=== PATIENT | female | born 1940 | race Caucasian/White ===

== ENCOUNTER 2018-06-24 11:58 | Emergency (ER) | payer MEDICARE, OTHER, MEDICAID ==
--- NOTE | 2018-06-24 12:10 | EDM.PDOC ---
ED HPI GENERAL MEDICAL PROBLEM - General Chief Complaint: General Stated Complaint: NAUSEA,WEAK,CHILLS Time Seen by Provider: 06/24/18 12:04 Source of Information: Reports: Patient, RN Notes Reviewed History Limitations: Reports: No Limitations - History of Present Illness INITIAL COMMENTS - FREE TEXT/NARRATIVE: The patient is a 77-year-old female who presents to the ED for the evaluation of nausea and just not feeling well. She states that she has not felt well since yesterday, she feels weak and nauseated and has not had much of an appetite for the past 2 days. She states that around one week ago she did have cold-like symptoms and was seen by her primary care doc, Dr. Mcgrath, and he did prescribe her a Z-Breezy but told her her cold symptoms are most likely viral. She states that she was started on a new water pill around 1 month ago and wonders if she might not be a little bit dehydrated from this. States that she can drink water okay but she just has no interest or appetite for food. She did eat cereal this morning knowing that she needs to eat some food and her stomach got sick shortly afterwards. She states that she does have nausea but no vomiting or diarrhea, no chest pain, no shortness of breath, no fever, however she feels as if she has the chills. She notes that she has some mild discomfort over her stomach in her abdomen but otherwise she does not have pain anywhere. She also denies any urinary symptoms such as frequency or dysuria. She states that she did have a normal bowel movement this morning. - Related Data Allergies Allergy/AdvReac Type Severity Reaction Status Date / Time aspirin Allergy Vomiting Verified 08/22/13 15:38 ibuprofen Allergy Vomiting Verified 08/22/13 15:38 Home Meds: Home Meds Diltiazem [Cardizem CD] 180 mg PO DAILY 08/22/13 [History] Metoprolol Succinate [Toprol XL] 125 mg PO DAILY 08/22/13 [History] Warfarin [Coumadin] 3 mg PO ASDIRECTED 08/22/13 [History] Warfarin [Coumadin] 2 mg PO MOFR 12/08/14 [History] Ondansetron [Zofran ODT] 4 mg PO Q6H PRN #28 tab.dis 06/24/18 [Rx] Past Medical History - Past Surgical History Other Oncologic Surgeries/Procedures: Reconstrudctive surgery after mastectomy ED ROS GENERAL - Review of Systems Review Of Systems: See Below Constitutional: Reports: Chills, Weakness, Fatigue, Decreased Appetite. Denies : Fever HEENT: Reports: No Symptoms Respiratory: Reports: No Symptoms Cardiovascular: Reports: No Symptoms Endocrine: Reports: No Symptoms GI/Abdominal: Reports: Nausea. Denies: Abdominal Pain, Black Stool, Constipation, Diarrhea, Vomiting : Denies: Dysuria, Frequency Musculoskeletal: Reports: No Symptoms Skin: Reports: No Symptoms Neurological: Reports: No Symptoms Psychiatric: Reports: Anxiety (History of, she states that she worries a lot.). Denies: Depression Hematologic/Lymphatic: Reports: No Symptoms Immunologic: Reports: No Symptoms ED EXAM, GENERAL - Physical Exam Exam: See Below Exam Limited By: No Limitations General Appearance: Alert, WD/WN, No Apparent Distress Eye Exam: Bilateral Eye: EOMI, Normal Inspection, PERRL Ears: Normal External Exam Nose: Normal Inspection Throat/Mouth: Normal Inspection, Normal Lips, Normal Oropharynx (Oral mucosa is mildly dry.), Normal Voice, No Airway Compromise. No: Normal Teeth Head: Atraumatic, Normocephalic Neck: Normal Inspection Respiratory/Chest: No Respiratory Distress, Lungs Clear, Normal Breath Sounds, No Accessory Muscle Use, Chest Non-Tender Cardiovascular: Normal Peripheral Pulses, Regular Rate, Rhythm, No Murmur GI/Abdominal: Normal Bowel Sounds, Soft, Non-Tender, No Distention Extremities: Normal Inspection, Normal Capillary Refill Neurological: Alert, Oriented, Normal Cognition, Normal Gait, No Motor/Sensory Deficits Psychiatric: Normal Affect, Normal Mood Skin Exam: Warm, Dry, Intact, Normal Color, No Rash Course - Vital Signs Last Recorded V/S: Last Vital Signs Temp 98.1 F 06/24/18 12:14 Pulse 89 06/24/18 12:14 Resp 20 06/24/18 12:14 BP 146/76 H 06/24/18 12:14 Pulse Ox 96 06/24/18 12:14 - Orders/Labs/Meds Orders: Active Orders 24 hr Category Date Time Status Peripheral IV Care [RC] . DIRECTED Care 06/24/18 12:23 Ordered Sodium Chloride 0.9% [Normal Saline] 1,000 ml Med 06/24/18 12:30 Ordered IV ASDIRECTED Sodium Chloride 0.9% [Saline Flush] Med 06/24/18 12:23 Ordered 10 ml FLUSH ASDIRECTED PRN Peripheral IV Insertion Adult [OM.PC] Routine Oth 06/24/18 12:23 Ordered Medication Orders Sodium Chloride (Normal Saline) 1,000 mls @ 500 mls/hr IV ASDIRECTED ONIEL Last Admin: 06/24/18 12:44 Dose: 500 mls/hr Sodium Chloride (Saline Flush) 10 ml FLUSH ASDIRECTED PRN PRN Reason: Keep Vein Open Last Admin: 06/24/18 12:44 Dose: 10 ml Labs: Laboratory Tests 06/24/18 06/24/18 06/24/18 Range/Units 13:23 13:23 13:33 WBC 4.15 (3.98-10.04) K/mm3 RBC 4.13 (3.98-5.22) M/mm3 Hgb 12.7 (11.2-15.7) gm/L Hct 37.6 (34.1-44.9) % MCV 91.0 (79.4-94.8) fl MCH 30.8 (25.6-32.2) pg MCHC 33.8 (32.2-35.5) g/dl RDW Std Deviation 41.9 (36.4-46.3) fL Plt Count 36 L (182-369) K/mm3 MPV 10.4 (9.4-12.3) fl Neutrophils % (Manual) 69 H (40-60) % Band Neutrophils % 0 (0-10) % Lymphocytes % (Manual) 19 L (20-40) % Atypical Lymphs % 0 % Monocytes % (Manual) 10 (2-10) % Eosinophils % (Manual) 2 (0.7-5.8) % Basophils % (Manual) 0 L (0.1-1.2) Platelet Estimate Marked dec RBC Morph Comment Normal Sodium 134 L (136-145) mEq/L Potassium 3.8 (3.5-5.1) mEq/L Chloride 98 (98-107) mEq/L Carbon Dioxide 25 (21-32) mEq/L Anion Gap 14.8 (5-15) BUN 20 H (7-18) mg/dL Creatinine 1.0 (0.55-1.02) mg/dL Est Cr Clr Drug Dosing 43.07 mL/min Estimated GFR (MDRD) 54 (>60) mL/min BUN/Creatinine Ratio 20.0 H (14-18) Glucose 107 (83-115) mg/dL Calcium 9.1 (8.5-10.1) mg/dL Total Bilirubin 0.5 (0.2-1.0) mg/dL AST 26 (15-37) U/L ALT 30 (14-59) U/L Alkaline Phosphatase 77 (46-116) U/L Total Protein 7.1 (6.4-8.2) g/dl Albumin 3.1 L (3.4-5.0) g/dl Globulin 4.0 gm/dL Albumin/Globulin Ratio 0.8 L (1-2) Urine Color Yellow (Yellow) Urine Appearance Clear (Clear) Urine pH 6.5 (5.0-8.0) Ur Specific [place] 1.015 (1.005-1.030) Urine Protein Negative (Negative) Urine Glucose (UA) Negative (Negative) Urine Ketones Negative (Negative) Urine Occult Blood Trace-lysed H (Negative) Urine Nitrite Negative (Negative) Urine Bilirubin Negative (Negative) Urine Urobilinogen 0.2 (0.2-1.0) Ur Leukocyte Esterase Negative (Negative) Urine RBC 0-5 (0-5) /hpf Urine WBC 0-5 (0-5) /hpf Ur Epithelial Cells 0-5 (0-5) /hpf Urine Bacteria Rare (FEW) /hpf Urine Mucus Not seen (FEW) /hpf Meds: Medications Generic Name Dose Route Start Last Admin Trade Name Freq PRN Reason Stop Dose Admin Sodium Chloride 1,000 mls @ 500 mls/hr 06/24/18 12:30 06/24/18 12:44 Normal Saline IV 500 mls/hr ASDIRECTED ONIEL Administration Sodium Chloride 10 ml 06/24/18 12:23 06/24/18 12:44 Saline Flush FLUSH 10 ml ASDIRECTED PRN Administration Keep Vein Open Discontinued Medications Generic Name Dose Route Start Last Admin Trade Name Freq PRN Reason Stop Dose Admin Ondansetron HCl 4 mg 06/24/18 12:23 06/24/18 12:45 Zofran IVPUSH 06/24/18 12:24 4 mg ONETIME ONE Administration - Re-Assessments/Exams Free Text/Narrative Re-Assessment/Exam: 06/24/18 12:35 Patient presents to the ED for the evaluation of nausea and general feelings of being unwell. Have ordered 4 mg IV Zofran, IV fluid bolus, CBC, CMP, and a UA and further evaluation of her symptoms. 06/24/18 14:38 Patient's labs have returned and are essentially within normal limits however her BUN is elevated at 20 which suggests that she was mildly dehydrated. We'll let the IV fluids run in and make her aware of the results. Departure - Departure Time of Disposition: 15:06 Disposition: Home, Self-Care 01 Condition: Fair Clinical Impression: Dehydration, Nausea - Discharge Information *PRESCRIPTION DRUG MONITORING PROGRAM REVIEWED*: No *COPY OF PRESCRIPTION DRUG MONITORING REPORT IN PATIENT JP: No Instructions: Nausea, Adult, [id number], Dehydration, Elderly, [id number] Referrals: Jorge Mcgrath MD [Primary Care Provider] - Forms: ED Department Discharge Additional Instructions: You have been evaluated in the ED today for your general feelings of nausea and weakness. You were given IV fluids in regards to your weakness feelings. Your labs did demonstrate that you are mildly dehydrated and the fluid should help correct this. You were given a medicine called Zofran for nausea. You will be provided with a prescription for Zofran as needed for home use, please dissolve 1 tab under your tongue every 8 hours as needed for nausea. [facility] you may pick this up Monday morning. Please increase you fluid intake as able and stick to a soft/bland diet for the next 24-48 hours to see if this doesn't help your feelings of nausea. Recommend close follow-up with your primary care provider by the middle or end of this week if your symptoms are not much better. Please return to the ED if your symptoms change or worsen. - My Orders Last 24 Hours: My Active Orders 06/24/18 12:23 Peripheral IV Care [RC] . DIRECTED Sodium Chloride 0.9% [Saline Flush] 10 ml FLUSH ASDIRECTED PRN Peripheral IV Insertion Adult [OM.PC] Routine 06/24/18 12:30 Sodium Chloride 0.9% [Normal Saline] 1,000 ml IV ASDIRECTED - Assessment/Plan Last 24 Hours: My Active Orders 06/24/18 12:23 Peripheral IV Care [RC] . DIRECTED Sodium Chloride 0.9% [Saline Flush] 10 ml FLUSH ASDIRECTED PRN Peripheral IV Insertion Adult [OM.PC] Routine 06/24/18 12:30 Sodium Chloride 0.9% [Normal Saline] 1,000 ml IV ASDIRECTED
[2018-06-24] MEDS ORDERED: Ondansetron 4 MG/2 ML SDV IVPUSH ONE (12:23)
[2018-06-24] MEDS ORDERED: Sodium Chloride 0.9% 10 ML Syringe FLUSH PRN (12:23)
[2018-06-24] MEDS ORDERED: Sodium Chloride 0.9% 1,000 ML IV SCH (12:30)
== END 2018-06-24 15:29 | disposition home or self-care (01) ==
LOC: JD.ED 11:58
DX: E86.0 Dehydration (principal); R11.0 Nausea; Z88.6 Allergy status to analgesic agent; Z79.01 Long term (current) use of anticoagulants; Z79.899 Other long term (current) drug therapy
CPT/HCPCS: 36415; 80053; 81001; 85007; 85027; 96361; 96374; 99284; J2405; J7040

== ENCOUNTER 2019-04-25 05:27 | Emergency (ER) | payer MEDICARE, OTHER ==
--- NOTE | 2019-04-25 06:06 | EDM.PDOC ---
ED HPI GENERAL MEDICAL PROBLEM - General Chief Complaint: Head Injury Stated Complaint: WRIST AND HEAD INJURY Time Seen by Provider: 04/25/19 05:37 Source of Information: Reports: Patient History Limitations: Reports: No Limitations - History of Present Illness INITIAL COMMENTS - FREE TEXT/NARRATIVE: Ms. Fortune is a very pleasant 78-year-old woman with a past medical history significant for peripheral neuropathy secondary to chemotherapy, and paroxysmal atrial fibrillation, on Coumadin, who states that she got up around 04:00 this morning, and decided to take the blankets off for bed to do some laundry. She states that because of her peripheral neuropathy, she did not realize that she had gotten her feet tangled up in the bed sheets, and she fell backwards, striking her right wrist on a wall, followed by the back of her head, before falling to the ground. She states that she injured her right wrist when she struck the wall, but that her head does not hurt, and she did not hurt herself further when she fell. Her only complaint is of her right wrist. She denies having a headache. The patient came to the ED by taxi. The patient's PCP is Dr. Nima Guidry. She does not recall the name of her Customer Marketing Assistant, who is out of [facility]. She states that she did receive an influenza vaccine this season. Right Wrist Pain Score (Numeric/FACES): 8 - Related Data Allergies Allergy/AdvReac Type Severity Reaction Status Date / Time aspirin Allergy Vomiting Verified 04/25/19 05:40 ibuprofen Allergy Vomiting Verified 04/25/19 05:40 Home Meds: Home Meds Diltiazem [Cardizem CD] 180 mg PO DAILY 08/22/13 [History] Metoprolol Succinate [Toprol XL] 150 mg PO DAILY 08/22/13 [History] Warfarin [Coumadin] 3 mg PO ASDIRECTED 08/22/13 [History] Warfarin [Coumadin] 4 mg PO ASDIRECTED 12/08/14 [History] Ondansetron [Zofran ODT] 4 mg PO Q6H PRN #28 tab.dis 06/24/18 [Rx] Doxazosin Mesylate [Cardura] 1 mg PO DAILY 04/25/19 [History] Past Medical History HEENT History: Reports: Allergic Rhinitis, Glaucoma Cardiovascular History: Reports: Afib (paroxysmal), Hypertension Genitourinary History: Reports: Urinary Incontinence (stress incontinence) Musculoskeletal History: Reports: Arthritis, Fracture (Right femur, right patella, right ankle) Psychiatric History: Reports: Anxiety (untreated), Depression (untreated) Oncologic (Cancer) History: Reports: Breast (right, s/p CTx + mastectomy) - Past Surgical History HEENT Surgical History: Reports: Cataract Surgery (bilateral), Oral Surgery ( Dental extractions), Tonsillectomy GI Surgical History: Reports: Appendectomy, Cholecystectomy (1975), Other (See Below) (Hemorrhoidectomy) Female Surgical History: Reports: Hysterectomy (partial) Musculoskeletal Surgical History: Reports: ORIF (right patella), Other (See Below) (Right femur rambo) Oncologic Surgical History: Reports: Mastectomy (right) Dermatological Surgical History: Reports: Plastic Surgical Reconstruction/ Repair (right breast) Social & Family History - Tobacco Use Smoking Status *Q: Never Smoker - Caffeine Use Caffeine Use: Reports: Soda - Alcohol Use Alcohol Use History: No - Recreational Drug Use Recreational Drug Use: No - Living Situation & Occupation Living situation: Reports: Single, Alone Occupation: Retired ED ROS GENERAL - Review of Systems Review Of Systems: Comprehensive ROS is negative, except as noted in HPI. ED EXAM, GENERAL - Physical Exam Exam: See Below Exam Limited By: No Limitations General Appearance: Alert, WD/WN, No Apparent Distress Eye Exam: Bilateral Eye: EOMI, Normal Inspection, Other (s/p cataract surgery) Ears: Normal External Exam, Normal Canal, Hearing Grossly Normal, Normal TMs Nose: Normal Inspection, Normal Mucosa, No Blood Throat/Mouth: Normal Inspection, Normal Lips, Normal Gums, Normal Oropharynx, Normal Voice, No Airway Compromise Head: Atraumatic (No visible or palpable abnormality to the posterior scalp. Nontender.), Normocephalic Neck: Normal Inspection, Supple, Non-Tender, Full Range of Motion Respiratory/Chest: No Respiratory Distress, Lungs Clear, Normal Breath Sounds, No Accessory Muscle Use Cardiovascular: Normal Peripheral Pulses, Regular Rate, Rhythm, No Edema, No Gallop, No JVD, No Murmur, No Rub Peripheral Pulses: 4+: Radial (L), Radial (R) GI/Abdominal: Normal Bowel Sounds, Soft, Non-Tender, No Organomegaly, No Distention, No Abnormal Bruit, No Mass (Female) Exam: Deferred Rectal (Female) Exam: Deferred Back Exam: Normal Inspection, Full Range of Motion, NT Extremities: Normal Capillary Refill, Other (There is some swelling over the distal right radius, and the area is tender to palpation. No tenderness over the distal ulna. No pain to the wrist with compression of the mid radius and ulna area the patient reports pain to range of motion of the right wrist. Neurovascular status of the right upper extremity is intact.) Neurological: Alert, Oriented, CN II-XII Intact, Normal Cognition, No Motor/ Sensory Deficits Psychiatric: Normal Affect Skin Exam: Warm, Dry, Intact, Normal Color, No Rash ED GENERAL MEDICAL PROCEDURES - Splinting Right Upper Extremity Splint Site: Right wrist Pre-procedure NV status: Normal Post-procedure NV status: Normal Splint Material: Fiberglass Splint Design: Gutter (ulnar) Applied & Form Fitted By: Provider Provider Post-Splint Application NV Check: NV Status Normal, Good Position Complications: No Course - Vital Signs Last Recorded V/S: Last Vital Signs Temp 35.9 C 04/25/19 05:35 Pulse 86 04/25/19 05:35 Resp 18 04/25/19 05:35 BP 179/74 H 04/25/19 05:35 Pulse Ox 96 04/25/19 05:35 - Orders/Labs/Meds Orders: Active Orders 24 hr Category Date Time Status DME for Discharge [COMM] Stat Oth 04/25/19 07:40 Ordered - Re-Assessments/Exams Free Text/Narrative Re-Assessment/Exam: 04/25/19 06:02 There is no visible or palpable injury to the patient's posterior skull, and she has no pain on palpation. Her neurologic examination is completely normal. A CT scan of her head is not indicated. I am more concerned, however, about her right wrist. She has visible swelling over the distal radius, pain to that area , and it is tender. A distal radius fracture is possible. I have ordered x-rays to evaluate. The patient declined an offer for pain medication. 04/25/19 06:31 4-view radiographs of the right wrist appear to demonstrate an impacted and minimally dorso-ulnar displaced distal radius fracture. No other fracture or dislocation identified. Formal read per the Radiologist pending. I will place the patient into an ulnar gutter splint and refer her to Ortho. 04/25/19 06:49 I placed the patient's right upper extremity into an ulnar gutter splint with the elbow at 90 and the hand in a thumbs-up position. The patient tolerated the procedure well. The patient does not think that she will be able to take care of herself at home with the splint on, and she may be right. She thinks that she will need to go into a [facility], which seems reasonable. I will have high school social studies teacher talk with the patient when they get here later this morning. 04/25/19 08:41 services account manager has been working with the patient, but are unable to arrange for either home health care or mcc placement without the patient having to pay for it, which she is unable to do. Unfortunately, we will have to discharge the patient home. We are recommending that she follow-up with her PCP. Departure - Departure Time of Disposition: 08:45 Disposition: Home, Self-Care 01 Condition: Good Clinical Impression: Fracture of right distal radius - Discharge Information *PRESCRIPTION DRUG MONITORING PROGRAM REVIEWED*: Not Applicable *COPY OF PRESCRIPTION DRUG MONITORING REPORT IN PATIENT JP: Not Applicable Referrals: Nima Guidry MD [Primary Care Provider] - Garcia Santamaria MD [Physician] - Forms: ED Department Discharge Additional Instructions: You were seen in the emergency room after tripping and falling in your bedroom, striking your right wrist on a wall. Workup in the ER included x-rays of your right wrist, which found that you have a distal radius fracture. Your right arm has been placed into a splint. The splint cannot get wet. We recommend that you ice and elevate your right wrist as much as possible over the next 2 days, to help minimize swelling. You may place an ice pack directly over the splint. Take [id number] Tylenol as needed for discomfort. Follow-up with the Orthopedic Surgeon Dr. Garcia Santamaria in approximately one week. Follow-up with your PCP, Dr. Nima Guidry, at the next available appointment. If any other problems, please do not hesitate to return to the ER. Sepsis Event Note - Evaluation Sepsis Screening Result: No Definite Risk - Focused Exam Vital Signs: Vital Signs Temp Pulse Resp BP Pulse Ox 04/25/19 05:35 35.9 C 86 18 179/74 H 96 Date Exam was Performed: 04/25/19 Time Exam was Performed: 08:40 - My Orders Last 24 Hours: My Active Orders 04/25/19 07:40 DME for Discharge [COMM] Stat - Assessment/Plan Last 24 Hours: My Active Orders 04/25/19 07:40 DME for Discharge [COMM] Stat
--- NOTE | 2019-04-25 07:34 | CR ---
Right wrist: Four views of the right wrist were obtained. Comparison: No previous right wrist exam. Fracture is identified within the distal radius through the metaphysis. Minimal posterior impaction is seen. Bony structures are osteopenic. No additional fracture or other bony abnormality is appreciated. Impression: 1. Slightly impacted distal right radial fracture. 2. Osteopenia. Diagnostic code #3 This report was dictated in [place] Standard Time
== END 2019-04-25 09:20 | disposition home or self-care (01) ==
LOC: JD.ED 05:27
DX: S52.501A Unspecified fracture of the lower end of right radius, initial encounter for closed fracture (principal); I48.91 Unspecified atrial fibrillation; I10 Essential (primary) hypertension; Z88.6 Allergy status to analgesic agent; Z79.01 Long term (current) use of anticoagulants; Z79.899 Other long term (current) drug therapy; W01.198A Fall on same level from slipping, tripping and stumbling with subsequent striking against other object, initial encounter
CPT/HCPCS: 29125; 73110-26-RT; 73110-RT; 99283; 99283-25

== ENCOUNTER 2020-01-22 14:39 | Inpatient (IN) | payer MEDICARE, OTHER, MEDICAID ==
[2020-01-22] MEDS ORDERED: Sodium Chloride 0.9% 10 ML Syringe FLUSH PRN (15:04)
--- NOTE | 2020-01-22 15:52 | EDM.PDOC ---
ED HPI GENERAL MEDICAL PROBLEM - General Chief Complaint: Gastrointestinal Problem Stated Complaint: [facility] Time Seen by Provider: 01/22/20 14:47 Source of Information: Reports: Patient History Limitations: Reports: No Limitations - History of Present Illness INITIAL COMMENTS - FREE TEXT/NARRATIVE: Patient is a 79-year-old female presenting to the emergency department with complaints of weakness, fatigue, and loss of appetite. She was tested for COVID on Monday and got her results yesterday. Patient was just discharged from [facility] in [place] after having a right total hip replacement due to sustaining a fall on January 05. She spent 10 days in the hospital. States she stayed with her daughter until Monday and has been home alone since that time. Patient feels that she had COVID while she was in the hospital as she had loss of appetite and taste, weakness, and a mild cough while she was there as well. She was tested for COVID prior to her surgery and at that time it was negative. She still was not feeling well after discharge, therefore she was tested again 5 days ago. She does not feel that she can care for herself at home due to her weakness and loss of appetite. Both of her daughters, one in [place] and one in [place] have COVID and she states that they are "in rough shape "; therefore, they would be unable to assist with her cares. She denies any recent falls since being home, however states that she feels like she would have fallen today which is why she called the ambulance. She was unable to eat lunch due to no appetite. Denies any vomiting, shortness of breath, chest pain, fever, or chills. Treatments OPERATIONS SUPPORT MANAGER: Reports: Acetaminophen Other Treatments OPERATIONS SUPPORT MANAGER: t-2 Right Hip Pain Score (Numeric/FACES): 8 - Related Data Allergies Allergy/AdvReac Type Severity Reaction Status Date / Time aspirin Allergy Vomiting Verified 01/22/20 17:31 ibuprofen Allergy Vomiting Verified 01/22/20 17:31 Home Meds: Home Meds Diltiazem [Cardizem CD] 180 mg PO DAILY 08/22/13 [History] Metoprolol Succinate [Toprol XL] 125 mg PO DAILY 08/22/13 [History] Warfarin [Coumadin] 3 mg PO ASDIRECTED 08/22/13 [History] Doxazosin Mesylate [Cardura] 1 mg PO DAILY 04/25/19 [History] Irbesartan/Hydrochlorothiazide [Avalide 150-12.5 mg Tablet] 150 mg PO DAILY 01/22/20 [History] Latanoprost 1 drop EYEBOTH BEDTIME 01/22/20 [History] Pediatric Multivit No.50/DHA [Flintstones Gummies Chew Tab] 1 tab PO DAILY 01/22/20 [History] timoloL maleate [Timoptic 0.5% Ophth Soln] 1 drop EYEBOTH DAILY 01/22/20 [History] Past Medical History HEENT History: Reports: Allergic Rhinitis, Glaucoma Cardiovascular History: Reports: Afib, Hypertension Respiratory History: Reports: Other (See Below) Other Respiratory History: seasonal allergies Gastrointestinal History: Reports: Other (See Below) Other Gastrointestinal History: n/v Genitourinary History: Reports: Urinary Incontinence MICROELECTRONICS ENGINEER History: Reports: Other (See Below) Other MICROELECTRONICS ENGINEER History: 3 kids Musculoskeletal History: Reports: Arthritis, Fracture Other Musculoskeletal History: frx right knee cap; femur bone with screw Neurological History: Reports: None Psychiatric History: Reports: Anxiety, Depression Endocrine/Metabolic History: Reports: None Hematologic History: Reports: None Immunologic History: Reports: None Oncologic (Cancer) History: Reports: Breast Dermatologic History: Reports: None - Infectious Disease History Infectious Disease History: Reports: Chicken Pox, Measles, Mumps, Rubella, Shingles - Past Surgical History Head Surgeries/Procedures: Reports: None HEENT Surgical History: Reports: Cataract Surgery, Oral Surgery, Tonsillectomy GI Surgical History: Reports: Appendectomy, Cholecystectomy, Other (See Below) Female Surgical History: Reports: Hysterectomy Musculoskeletal Surgical History: Reports: ORIF, Other (See Below) Oncologic Surgical History: Reports: Mastectomy Dermatological Surgical History: Reports: Plastic Surgical Reconstruction/Repair Social & Family History - Family History Family Medical History: Noncontributory Cardiac: Reports: VT Neurological: Reports: CVA - Tobacco Use Smoking Status *Q: Never Smoker - Caffeine Use Caffeine Use: Reports: Soda - Recreational Drug Use Recreational Drug Use: No - Living Situation & Occupation Living situation: Reports: Single, Alone Occupation: Retired ED ROS GENERAL - Review of Systems Review Of Systems: See Below Constitutional: Reports: Weakness, Fatigue, Decreased Appetite. Denies: Fever, Chills HEENT: Reports: No Symptoms Respiratory: Reports: Cough. Denies: Shortness of Breath, Wheezing, Pleuritic Chest Pain Cardiovascular: Reports: No Symptoms. Denies: Chest Pain, Dyspnea on Exertion, Lightheadedness, Syncope Endocrine: Reports: No Symptoms GI/Abdominal: Reports: Decreased Appetite, Nausea. Denies: Abdominal Pain, Vomiting : Reports: No Symptoms Musculoskeletal: Reports: Other (right hip pain) Skin: Reports: No Symptoms Neurological: Reports: No Symptoms. Denies: Dizziness, Headache Psychiatric: Reports: No Symptoms Hematologic/Lymphatic: Reports: No Symptoms Immunologic: Reports: No Symptoms ED EXAM, GI/ABD - Physical Exam Exam: See Below General Appearance: Alert, WD/WN, No Apparent Distress Respiratory/Chest: No Respiratory Distress, Lungs Clear, Normal Breath Sounds, No Accessory Muscle Use, Chest Non-Tender Cardiovascular: Normal Peripheral Pulses, Regular Rate, Rhythm, No Edema, No Gallop, No JVD, No Murmur, No Rub GI/Abdominal Exam: Normal Bowel Sounds, Soft, Non-Tender, No Organomegaly, No Distention, No Abnormal Bruit, No Mass, Pelvis Stable Extremities: Normal Inspection, Normal Range of Motion, Non-Tender, Normal C apillary Refill, No Pedal Edema Neurological: Alert, Oriented, CN II-XII Intact, Normal Cognition, Normal Gait, Normal Reflexes, No Motor/Sensory Deficits Psychiatric: Normal Affect, Normal Mood Skin Exam: Wound/Incision (mostly healed to right hip. well approximated with no redness or warmth.) EKG INTERPRETATION EKG Date: 01/22/20 Time: 15:25 Rhythm: A-Fib Rate (Beats/Min): 70 [place]: Normal P-Wave: Absent QRS: Normal ST-T: Normal QT: Prolonged (Mildly) EKG Interpretation Comments: A. 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 Jennifer TAVERAS Course - Vital Signs Last Recorded V/S: Last Vital Signs Temp 97.3 F 01/22/20 17:22 Pulse 54 L 01/22/20 17:22 Resp 18 01/22/20 17:22 BP 148/83 H 01/22/20 17:22 Pulse Ox 96 10/07/20 17:22 - Orders/Labs/Meds Orders: Active Orders 24 hr Category Date Time Status Chest 1V Frontal [CR] Stat Exams 01/22/20 15:05 Taken Sodium Chloride 0.9% [Saline Flush] Med 01/22/20 15:04 Active 10 ml FLUSH ASDIRECTED PRN Peripheral IV Insertion Adult [OM.PC] Stat Oth 01/22/20 15:04 Ordered Medication Orders Acetaminophen (Tylenol) 650 mg PO Q4H PRN PRN Reason: Pain (Mild 1-3)/fever Diltiazem HCl (Cardizem Cd) 180 mg PO DAILY [facility] Doxazosin Mesylate (Cardura) 1 mg PO DAILY ONI[facility] Hydrochlorothiazide (Hydrochlorothiazide) 12.5 mg PO DAILY [facility] Latanoprost (Xalatan 0.005% Ophth Soln) 0 ml EYEBOTH BEDTIME ONIEL Last Admin: 01/22/20 20:48 Dose: 1 drop Documented by: PARTH Losartan Potassium (Cozaar) 50 mg PO DAILY [facility] Metoprolol Succinate (Toprol Xl) 125 mg PO DAILY [facility] Non-Formulary Medication (Warfarin) 3 mg PO ASDIRECTED ONIEL Ondansetron HCl (Zofran) 4 mg IV Q4H PRN PRN Reason: Nausea/Vomiting Sodium Chloride (Saline Flush) 10 ml FLUSH ASDIRECTED PRN PRN Reason: Keep Vein Open Last Admin: 01/22/20 15:13 Dose: 10 ml Documented by: KEN Timolol Maleate (Timoptic 0.5% Ophth Soln) 0 ml EYEBOTH DAILY [facility] Labs: Laboratory Tests 01/22/20 01/22/20 01/22/20 Range/Units 15:29 15:29 15:29 WBC 4.47 (3.98-10.04) K/mm3 RBC 3.48 L (3.98-5.22) M/mm3 Hgb 10.5 L D (11.2-15.7) gm/dl Hct 32.0 L (34.1-44.9) % MCV 92.0 (79.4-94.8) fl MCH 30.2 (25.6-32.2) pg MCHC 32.8 (32.2-35.5) g/dl RDW Std Deviation 45.6 (36.4-46.3) fL Plt Count 321 D (182-369) K/mm3 MPV 9.7 (9.4-12.3) fl Neut % (Auto) 58.0 (34.0-71.1) % Lymph % (Auto) 21.7 (19.3-51.7) % [place] % (Auto) 17.9 H (4.7-12.5) % Eos % (Auto) 2.0 (0.7-5.8) Baso % (Auto) 0.2 (0.1-1.2) % Neut # (Auto) 2.59 (1.56-6.13) K/mm3 Lymph # (Auto) 0.97 L (1.18-3.74) K/mm3 [place] # (Auto) 0.80 H (0.24-0.36) K/mm3 Eos # (Auto) 0.09 (0.04-0.36) K/mm3 Baso # (Auto) 0.01 (0.01-0.08) K/mm3 Manual Slide Review Normal smear PT (9.7-11.7) SECONDS INR APTT (22-31) SECONDS D-Dimer, Quantitative 1.29 H (0.19-0.50) mg/L Sodium 132 L (136-145) mEq/L Potassium 3.6 (3.5-5.1) mEq/L Chloride 97 L (98-107) mEq/L Carbon Dioxide 27 (21-32) mEq/L Anion Gap 11.6 (5-15) BUN 19 H (7-18) mg/dL Creatinine 0.8 (0.55-1.02) mg/dL Est Cr Clr Drug Dosing 53.20 mL/min Estimated GFR (MDRD) > 60 (>60) mL/min BUN/Creatinine Ratio 23.8 H (14-18) Glucose 112 (83-115) mg/dL Lactic Acid (0.4-2.0) mmol/L Calcium 8.5 (8.5-10.1) mg/dL Magnesium 1.5 L (1.8-2.4) mg/dl Total Bilirubin 0.5 (0.2-1.0) mg/dL AST 16 (15-37) U/L ALT 21 (14-59) U/L Alkaline Phosphatase 116 (46-116) U/L Troponin I 0.019 (0.00-0.056) ng/mL C-Reactive Protein 2.0 H* (<1.0) mg/dL Total Protein 6.2 L (6.4-8.2) g/dl Albumin 2.7 L (3.4-5.0) g/dl Globulin 3.5 gm/dL Albumin/Globulin Ratio 0.8 L (1-2) Urine Color (Yellow) Urine Appearance (Clear) Urine pH (5.0-8.0) Ur Specific [place] (1.005-1.030) Urine Protein (Negative) Urine Glucose (UA) (Negative) Urine Ketones (Negative) Urine Occult Blood (Negative) Urine Nitrite (Negative) Urine Bilirubin (Negative) Urine Urobilinogen (0.2-1.0) Ur Leukocyte Esterase (Negative) Urine RBC (0-5) /hpf Urine WBC (0-5) /hpf Ur Squamous Epith Cells (0-5) /hpf Urine Bacteria (FEW) /hpf Urine Mucus (FEW) /hpf 01/22/20 01/22/20 01/22/20 Range/Units 15:29 15:29 15:35 WBC (3.98-10.04) K/mm3 RBC (3.98-5.22) M/mm3 Hgb (11.2-15.7) gm/dl Hct (34.1-44.9) % MCV (79.4-94.8) fl MCH (25.6-32.2) pg MCHC (32.2-35.5) g/dl RDW Std Deviation (36.4-46.3) fL Plt Count (182-369) K/mm3 MPV (9.4-12.3) fl Neut % (Auto) (34.0-71.1) % Lymph % (Auto) (19.3-51.7) % [place] % (Auto) (4.7-12.5) % Eos % (Auto) (0.7-5.8) Baso % (Auto) (0.1-1.2) % Neut # (Auto) (1.56-6.13) K/mm3 Lymph # (Auto) (1.18-3.74) K/mm3 [place] # (Auto) (0.24-0.36) K/mm3 Eos # (Auto) (0.04-0.36) K/mm3 Baso # (Auto) (0.01-0.08) K/mm3 Manual Slide Review PT 22.6 H (9.7-11.7) SECONDS INR 2.14 APTT 39 H (22-31) SECONDS D-Dimer, Quantitative (0.19-0.50) mg/L Sodium (136-145) mEq/L Potassium (3.5-5.1) mEq/L Chloride (98-107) mEq/L Carbon Dioxide (21-32) mEq/L Anion Gap (5-15) BUN (7-18) mg/dL Creatinine (0.55-1.02) mg/dL Est Cr Clr Drug Dosing mL/min Estimated GFR (MDRD) (>60) mL/min BUN/Creatinine Ratio (14-18) Glucose (83-115) mg/dL Lactic Acid 0.9 (0.4-2.0) mmol/L Calcium (8.5-10.1) mg/dL Magnesium (1.8-2.4) mg/dl Total Bilirubin (0.2-1.0) mg/dL AST (15-37) U/L ALT (14-59) U/L Alkaline Phosphatase (46-116) U/L Troponin I (0.00-0.056) ng/mL C-Reactive Protein (<1.0) mg/dL Total Protein (6.4-8.2) g/dl Albumin (3.4-5.0) g/dl Globulin gm/dL Albumin/Globulin Ratio (1-2) Urine Color Yellow (Yellow) Urine Appearance Clear (Clear) Urine pH 6.0 (5.0-8.0) Ur Specific [place] 1.025 (1.005-1.030) Urine Protein Negative (Negative) Urine Glucose (UA) Negative (Negative) Urine Ketones Negative (Negative) Urine Occult Blood Negative (Negative) Urine Nitrite Negative (Negative) Urine Bilirubin Negative (Negative) Urine Urobilinogen 0.2 (0.2-1.0) Ur Leukocyte Esterase Negative (Negative) Urine RBC Not seen (0-5) /hpf Urine WBC 0-5 (0-5) /hpf Ur Squamous Epith Cells 5-10 H (0-5) /hpf Urine Bacteria Not seen (FEW) /hpf Urine Mucus Not seen (FEW) /hpf Meds: Medications Generic Name Dose Route Start Last Admin Trade Name Freq PRN Reason Stop Dose Admin Acetaminophen 650 mg 01/22/20 19:20 Tylenol PO Q4H PRN Pain (Mild 1-3)/fever Diltiazem HCl 180 mg 01/23/20 09:00 Cardizem Cd PO DAILY ONI[facility] Doxazosin Mesylate 1 mg 01/23/20 09:00 Cardura PO DAILY ONI[facility] Hydrochlorothiazide 12.5 mg 01/23/20 09:00 Hydrochlorothiazide PO DAILY ONI[facility] Latanoprost 0 ml 01/22/20 21:00 01/22/20 20:48 Xalatan 0.005% Ophth Soln EYEBOTH 1 drop BEDTIME ONI[facility] Administration Losartan Potassium 50 mg 01/23/20 09:00 Cozaar PO DAILY ONI[facility] Metoprolol Succinate 125 mg 01/23/20 09:00 Toprol Xl PO DAILY ONI[facility] Non-Formulary Medication 3 mg 01/22/20 19:30 Warfarin PO ASDIRECTED ONIEL Ondansetron HCl 4 mg 01/22/20 19:20 Zofran IV Q4H PRN Nausea/Vomiting Sodium Chloride 10 ml 01/22/20 15:04 01/22/20 15:13 Saline Flush FLUSH 10 ml ASDIRECTED PRN Administration Keep Vein Open Timolol Maleate 0 ml 01/23/20 09:00 Timoptic 0.5% Ophth Soln EYEBOTH DAILY ONIEL Discontinued Medications Generic Name Dose Route Start Last Admin Trade Name Freq PRN Reason Stop Dose Admin Influenza Virus Vaccine 240 mcg 01/22/20 18:00 Fluzone High-Dose Quad 2020-21 IM 01/22/20 18:01 .ONCE ONE - Re-Assessments/Exams Free Text/Narrative Re-Assessment/Exam: Patient is a 79-year-old female presenting to the emergency department with complaints of nausea, weakness, and decreased appetite with a known diagnosis of COVID-19. She was recently discharged from the hospital at [facility] in [place] after falling and fracturing her right hip and undergoing a right total hip replacement. Unfortunately, both of her daughters also have COVID so they were unable to assist her with her cares at home. She is worried that she will fall again at home as she is too weak to care for herself. She denies any shortness of breath, chest pain, or dizziness. She states she is had a light cough, some generalized nausea with no vomiting, decreased appetite, and weakness. I have ordered a CBC, CMP, CRP, d-dimer, urinalysis, chest x-ray. 01/22/20 1620 Otology was significant for a hemoglobin slightly low at 10.5, d-dimer elevated 1.29, INR therapeutic at 2.14, sodium 132, chloride 97, BUN 19, magnesium 1.5, CRP 2.0. Urinalysis was negative for infection. While the d-dimer is minimally elevated, patient is therapeutic on her Coumadin, therefore the likelihood of having a PE is quite low. It is more likely that her elevated d-dimer is related to her COVID-19 diagnosis. Chest x-ray was negative for any acute abnormalities. EKG showed A. fib with rate of 43-90 with no acute abnormalities. Case was discussed with hospitalist, Dr. Carver. He will admit the patient into the hospital for weakness with COVID-19. Patient updated and she is in agreement. Departure - Departure Time of Disposition: 16:21 Disposition: Admitted As Inpatient 66 Condition: Good Clinical Impression: COVID-19, Weakness, Status post fracture of right hip - Discharge Information Sepsis Event Note (ED) - Evaluation Sepsis Screening Result: No Definite Risk - Focused Exam Vital Signs: Vital Signs Temp Pulse Resp BP Pulse Ox 01/22/20 15:01 97.1 F 97 20 143/69 H 97 - My Orders Last 24 Hours: My Active Orders 01/22/20 15:04 Sodium Chloride 0.9% [Saline Flush] 10 ml FLUSH ASDIRECTED PRN Peripheral IV Insertion Adult [OM.PC] Stat 01/22/20 15:05 Chest 1V Frontal [CR] Stat - Assessment/Plan Last 24 Hours: My Active Orders 01/22/20 15:04 Sodium Chloride 0.9% [Saline Flush] 10 ml FLUSH ASDIRECTED PRN Peripheral IV Insertion Adult [OM.PC] Stat 01/22/20 15:05 Chest 1V Frontal [CR] Stat
[2020-01-22] MEDS ORDERED: FLU Vacc QV2020-21(65YR UP)/PF 240 MCG/0.7 ML Syringe IM ONE (18:00)
[2020-01-22] MEDS ORDERED: Ondansetron 4 MG/2 ML SDV IV PRN (19:20)
[2020-01-22] MEDS ORDERED: Acetaminophen 325 MG Tab PO PRN (19:20)
[2020-01-22] MEDS ORDERED: Non-Formulary Medication 1 Each (Warfarin 3 MG) PO SCH (19:30)
--- NOTE | 2020-01-22 20:33 | PCM.HP.2 ---
H&P History of Present Illness - General Date of Service: 01/22/20 Admit Problem/Dx: Admission Diagnosis/Problem Admission Diagnosis/Problem Weakness - History of Present Illness Initial Comments - Free Text/Narative: 79-year-old female who was in [facility] after falling and breaking her right hip on January 04, 2020. Patient had surgery on the the delay was secondary to warfarin use. Patient then spent the next 10 days in the hospital recovering. She states that prior to discharge she started feeling tired and decreased sense of taste. She was tested prior to her surgery for COVID-19, but not before discharge. Her daughter who lives in [place] tested positive and her daughter who she stayed with after discharge also has tested positive for COVID-19. On January 16 patient had a COVID-19 test done at the clinic which was positive. Over the last few days she has had worsening weakness, fatigue, and loss of appetite. She is no longer safe to be at home and her daughters are too sick to be able to take care of her at home. She is not having any respiratory symptoms and denies any gastrointestinal symptoms. Right Hip Pain Score (Numeric/FACES): 8 - Related Data Allergies/Adverse Reactions: Allergies Allergy/AdvReac Type Severity Reaction Status Date / Time aspirin Allergy Vomiting Verified 01/22/20 17:31 ibuprofen Allergy Vomiting Verified 01/22/20 17:31 Home Medications: Home Meds Diltiazem [Cardizem CD] 180 mg PO DAILY 08/22/13 [History] Metoprolol Succinate [Toprol XL] 125 mg PO DAILY 08/22/13 [History] Warfarin [Coumadin] 3 mg PO ASDIRECTED 08/22/13 [History] Doxazosin Mesylate [Cardura] 1 mg PO DAILY 04/25/19 [History] Irbesartan/Hydrochlorothiazide [Avalide 150-12.5 mg Tablet] 150 mg PO DAILY 01/22/20 [History] Latanoprost 1 drop EYEBOTH BEDTIME 01/22/20 [History] Pediatric Multivit No.50/DHA [Flintstones Gummies Chew Tab] 1 tab PO DAILY 1 [History] timoloL maleate [Timoptic 0.5% Ophth Soln] 1 drop EYEBOTH DAILY 01/22/20 [History] Past Medical History HEENT History: Reports: Allergic Rhinitis, Glaucoma Other HEENT History: wears glasses Cardiovascular History: Reports: Afib, Hypertension Respiratory History: Reports: Other (See Below) Other Respiratory History: seasonal allergies Gastrointestinal History: Reports: Other (See Below) Other Gastrointestinal History: n/v Genitourinary History: Reports: Urinary Incontinence RN ELIGIBILITY History: Reports: Other (See Below) Other OB/BYN History: 3 kids Musculoskeletal History: Reports: Arthritis, Fracture Other Musculoskeletal History: frx right knee cap; femur bone with screw Neurological History: Reports: None Psychiatric History: Reports: Anxiety, Depression Endocrine/Metabolic History: Reports: None Hematologic History: Reports: None Immunologic History: Reports: None Oncologic (Cancer) History: Reports: Breast Dermatologic History: Reports: None - Infectious Disease History Infectious Disease History: Reports: Chicken Pox, Measles, Mumps, Rubella, Shingles - Past Surgical History Head Surgeries/Procedures: Reports: None HEENT Surgical History: Reports: Cataract Surgery, Oral Surgery, Tonsillectomy GI Surgical History: Reports: Appendectomy, Cholecystectomy, Other (See Below) Female Surgical History: Reports: Hysterectomy Musculoskeletal Surgical History: Reports: ORIF, Other (See Below) Oncologic Surgical History: Reports: Mastectomy Dermatological Surgical History: Reports: Plastic Surgical Reconstruction/Repair Social & Family History - Family History Family Medical History: Noncontributory Cardiac: Reports: [place] Neurological: Reports: CVA - Tobacco Use Smoking Status *Q: Never Smoker - Caffeine Use Caffeine Use: Reports: Soda - Recreational Drug Use Recreational Drug Use: No - Living Situation & Occupation Living situation: Reports: Single, Alone Occupation: Retired H&P Review of Systems - Review of Systems: Review Of Systems: Comprehensive ROS is negative, except as noted in HPI. Exam - Exam Exam: See Below - Vital Signs Vital Signs: Last Vital Signs Temp 97.3 F 01/22/20 17:22 Pulse 54 L 01/22/20 17:22 Resp 18 01/22/20 17:22 BP 148/83 H 01/22/20 17:22 Pulse Ox 96 01/22/20 17:22 Weight: 79.742 kg - Exam Quality Assessment: No: Supplemental Oxygen General: Alert, Oriented, 4 HEENT: Conjunctiva Clear, Hearing Intact, Mucosa Moist & [place], Normal Nasal Septum Neck: Supple, Trachea Midline Lungs: Clear to Auscultation, Normal Respiratory Effort Cardiovascular: Irregular Rhythm (Regular rate) GI/Abdominal Exam: Normal Bowel Sounds, Soft, Non-Tender, No Distention, No Abnormal Bruit Back Exam: Normal Inspection Extremities: Normal Inspection, Non-Tender, No Pedal Edema, Normal Capillary Refill Peripheral Pulses: 1+: Posterior Tibial (L), Posterior Tibial (R), Dorsalis Pedis (L), Dorsalis Pedis (R) Skin: Warm, Dry, Intact Neurological: Cranial Nerves Intact Neuro Extensive - Mental Status: Alert, Oriented x3, Normal Mood/Affect, Normal Cognition, Memory Intact Neuro Extensive - Motor, Sensory, Reflexes: CN II-XII Intact Psychiatric: Alert, Normal Affect, Normal Mood - Patient Data Lab Results Last 24 hrs: Laboratory Results - last 24 hr 01/22/20 01/22/20 01/22/20 Range/Units 15:29 15:29 15:29 WBC 4.47 (3.98-10.04) K/mm3 RBC 3.48 L (3.98-5.22) M/mm3 Hgb 10.5 L D (11.2-15.7) gm/dl Hct 32.0 L (34.1-44.9) % MCV 92.0 (79.4-94.8) fl MCH 30.2 (25.6-32.2) pg MCHC 32.8 (32.2-35.5) g/dl RDW Std Deviation 45.6 (36.4-46.3) fL Plt Count 321 D (182-369) K/mm3 MPV 9.7 (9.4-12.3) fl Neut % (Auto) 58.0 (34.0-71.1) % Lymph % (Auto) 21.7 (19.3-51.7) % [place] % (Auto) 17.9 H (4.7-12.5) % Eos % (Auto) 2.0 (0.7-5.8) Baso % (Auto) 0.2 (0.1-1.2) % Neut # (Auto) 2.59 (1.56-6.13) K/mm3 Lymph # (Auto) 0.97 L (1.18-3.74) K/mm3 [place] # (Auto) 0.80 H (0.24-0.36) K/mm3 Eos # (Auto) 0.09 (0.04-0.36) K/mm3 Baso # (Auto) 0.01 (0.01-0.08) K/mm3 Manual Slide Review Normal smear PT (9.7-11.7) SECONDS INR APTT (22-31) SECONDS D-Dimer, Quantitative 1.29 H (0.19-0.50) mg/L Sodium 132 L (136-145) mEq/L Potassium 3.6 (3.5-5.1) mEq/L Chloride 97 L (98-107) mEq/L Carbon Dioxide 27 (21-32) mEq/L Anion Gap 11.6 (5-15) BUN 19 H (7-18) mg/dL Creatinine 0.8 (0.55-1.02) mg/dL Est Cr Clr Drug Dosing 53.20 mL/min Estimated GFR (MDRD) > 60 (>60) mL/min BUN/Creatinine Ratio 23.8 H (14-18) Glucose 112 (83-115) mg/dL Lactic Acid (0.4-2.0) mmol/L Calcium 8.5 (8.5-10.1) mg/dL Magnesium 1.5 L (1.8-2.4) mg/dl Total Bilirubin 0.5 (0.2-1.0) mg/dL AST 16 (15-37) U/L ALT 21 (14-59) U/L Alkaline Phosphatase 116 (46-116) U/L Troponin I 0.019 (0.00-0.056) ng/mL C-Reactive Protein 2.0 H* (<1.0) mg/dL Total Protein 6.2 L (6.4-8.2) g/dl Albumin 2.7 L (3.4-5.0) g/dl Globulin 3.5 gm/dL Albumin/Globulin Ratio 0.8 L (1-2) Urine Color (Yellow) Urine Appearance (Clear) Urine pH (5.0-8.0) Ur Specific [place] (1.005-1.030) Urine Protein (Negative) Urine Glucose (UA) (Negative) Urine Ketones (Negative) Urine Occult Blood (Negative) Urine Nitrite (Negative) Urine Bilirubin (Negative) Urine Urobilinogen (0.2-1.0) Ur Leukocyte Esterase (Negative) Urine RBC (0-5) /hpf Urine WBC (0-5) /hpf Ur Squamous Epith Cells (0-5) /hpf Urine Bacteria (FEW) /hpf Urine Mucus (FEW) /hpf 01/22/20 01/22/20 01/22/20 Range/Units 15:29 15:29 15:35 WBC (3.98-10.04) K/mm3 RBC (3.98-5.22) M/mm3 Hgb (11.2-15.7) gm/dl Hct (34.1-44.9) % MCV (79.4-94.8) fl MCH (25.6-32.2) pg MCHC (32.2-35.5) g/dl RDW Std Deviation (36.4-46.3) fL Plt Count (182-369) K/mm3 MPV (9.4-12.3) fl Neut % (Auto) (34.0-71.1) % Lymph % (Auto) (19.3-51.7) % [place] % (Auto) (4.7-12.5) % Eos % (Auto) (0.7-5.8) Baso % (Auto) (0.1-1.2) % Neut # (Auto) (1.56-6.13) K/mm3 Lymph # (Auto) (1.18-3.74) K/mm3 [place] # (Auto) (0.24-0.36) K/mm3 Eos # (Auto) (0.04-0.36) K/mm3 Baso # (Auto) (0.01-0.08) K/mm3 Manual Slide Review PT 22.6 H (9.7-11.7) SECONDS INR 2.14 APTT 39 H (22-31) SECONDS D-Dimer, Quantitative (0.19-0.50) mg/L Sodium (136-145) mEq/L Potassium (3.5-5.1) mEq/L Chloride (98-107) mEq/L Carbon Dioxide (21-32) mEq/L Anion Gap (5-15) BUN (7-18) mg/dL Creatinine (0.55-1.02) mg/dL Est Cr Clr Drug Dosing mL/min Estimated GFR (MDRD) (>60) mL/min BUN/Creatinine Ratio (14-18) Glucose (83-115) mg/dL Lactic Acid 0.9 (0.4-2.0) mmol/L Calcium (8.5-10.1) mg/dL Magnesium (1.8-2.4) mg/dl Total Bilirubin (0.2-1.0) mg/dL AST (15-37) U/L ALT (14-59) U/L Alkaline Phosphatase (46-116) U/L Troponin I (0.00-0.056) ng/mL C-Reactive Protein (<1.0) mg/dL Total Protein (6.4-8.2) g/dl Albumin (3.4-5.0) g/dl Globulin gm/dL Albumin/Globulin Ratio (1-2) Urine Color Yellow (Yellow) Urine Appearance Clear (Clear) Urine pH 6.0 (5.0-8.0) Ur Specific [place] 1.025 (1.005-1.030) Urine Protein Negative (Negative) Urine Glucose (UA) Negative (Negative) Urine Ketones Negative (Negative) Urine Occult Blood Negative (Negative) Urine Nitrite Negative (Negative) Urine Bilirubin Negative (Negative) Urine Urobilinogen 0.2 (0.2-1.0) Ur Leukocyte Esterase Negative (Negative) Urine RBC Not seen (0-5) /hpf Urine WBC 0-5 (0-5) /hpf Ur Squamous Epith Cells 5-10 H (0-5) /hpf Urine Bacteria Not seen (FEW) /hpf Urine Mucus Not seen (FEW) /hpf Result Diagrams: 01/22/20 15:29 01/22/20 15:29 Sepsis Event Note - Evaluation Sepsis Screening Result: No Definite Risk - Focused Exam Vital Signs: Vital Signs Temp Temp Pulse Pulse Resp BP BP 01/22/20 17:22 97.3 F 54 L 18 148/83 H 01/22/20 15:01 97.1 F 97 20 143/69 H Pulse Ox 01/22/20 17:22 96 01/22/20 15:01 97 - Problem List (1) COVID-19 SNOMED Code(s): 443893960 ICD Code: U07.1 - COVID-19 Status: Acute Current Visit: Yes (2) Failure to thrive SNOMED Code(s): 93261670 ICD Code: GHQ2001 - Status: Acute Current Visit: Yes (3) Weakness SNOMED Code(s): 26307815 ICD Code: R53.1 - WEAKNESS Status: Acute Current Visit: Yes (4) Status post fracture of right hip SNOMED Code(s): 876574247 ICD Code: Z87.81 - PERSONAL HISTORY OF (HEALED) TRAUMATIC FRACTURE Status: Acute Current Visit: Yes Problem List Initiated/Reviewed/Updated: Yes Orders Last 24hrs: Active Orders 24 hr Category Date Time Status Patient Status [ADT] Routine ADT 01/22/20 16:21 Active Influenza Vaccine Charge [RC] .DISCHARGE Care 01/22/20 17:41 Active Oxygen Therapy [RC] PRN Care 01/22/20 19:20 Active Up With Assistance [RC] ASDIRECTED Care 01/22/20 19:20 Active VTE/DVT Education [RC] PER UNIT ROUTINE Care 01/22/20 19:20 Active Vital Signs [RC] 10,16,22,04 Care 01/22/20 19:20 Active PT Evaluation and Treatment [CONS] Routine Cons 01/22/20 19:20 Active Heart Healthy Diet [DIET] Diet 01/22/20 Dinner Active Chest 1V Frontal [CR] Stat Exams 01/22/20 15:05 Taken CBC WITH AUTO DIFF [HEME] AM Lab 01/23/20 05:11 Ordered COMPREHENSIVE METABOLIC PN,CMP [CHEM] AM Lab 01/23/20 05:11 Ordered INR,PT,PROTHROMBIN TIME [COAG] DAILY Lab 01/23/20 05:10 Ordered INR,PT,PROTHROMBIN TIME [COAG] DAILY Lab 01/24/20 05:10 Ordered INR,PT,PROTHROMBIN TIME [COAG] DAILY Lab 01/25/20 05:10 Ordered INR,PT,PROTHROMBIN TIME [COAG] DAILY Lab 01/26/20 05:10 Ordered INR,PT,PROTHROMBIN TIME [COAG] DAILY Lab 01/27/20 05:10 Ordered INR,PT,PROTHROMBIN TIME [COAG] DAILY Lab 01/28/20 05:10 Ordered INR,PT,PROTHROMBIN TIME [COAG] DAILY Lab 01/29/20 05:10 Ordered INR,PT,PROTHROMBIN TIME [COAG] DAILY Lab 01/30/20 05:10 Ordered INR,PT,PROTHROMBIN TIME [COAG] DAILY Lab 01/31/20 05:10 Ordered MAGNESIUM [CHEM] AM Lab 01/23/20 05:11 Ordered Acetaminophen [TylenoL] Med 01/22/20 19:20 Active 650 mg PO Q4H PRN Diltiazem [Cardizem CD] Med 01/23/20 09:00 Active 180 mg PO DAILY Doxazosin [Cardura] Med 01/23/20 09:00 Active 1 mg PO DAILY Latanoprost [Xalatan 0.005% Ophth Soln] Med 01/22/20 21:00 Active 0 ml EYEBOTH BEDTIME Losartan [Cozaar] Med 01/23/20 09:00 Active 50 mg PO DAILY Metoprolol Succinate [Toprol XL] Med 01/23/20 09:00 Active 125 mg PO DAILY Ondansetron [Zofran] Med 01/22/20 19:20 Active 4 mg IV Q4H PRN Sodium Chloride 0.9% [Saline Flush] Med 01/22/20 15:04 Active 10 ml FLUSH ASDIRECTED PRN Warfarin Med 01/22/20 19:30 Pending 3 mg PO ASDIRECTED hydroCHLOROthiazide Med 01/23/20 09:00 Active 12.5 mg PO DAILY timoloL maleate [Timoptic 0.5% Ophth Soln] Med 01/23/20 09:00 Active 0 ml EYEBOTH DAILY Peripheral IV Insertion Adult [OM.PC] Stat Oth 01/22/20 15:04 Ordered Resuscitation Status Routine Resus Stat 01/22/20 19:20 Ordered Medication Orders Acetaminophen (Tylenol) 650 mg PO Q4H PRN PRN Reason: Pain (Mild 1-3)/fever Diltiazem HCl (Cardizem Cd) 180 mg PO DAILY ONIEL Doxazosin Mesylate (Cardura) 1 mg PO DAILY ONIEL Hydrochlorothiazide (Hydrochlorothiazide) 12.5 mg PO DAILY ONIEL Latanoprost (Xalatan 0.005% Ophth Soln) 0 ml EYEBOTH BEDTIME ONIEL Losartan Potassium (Cozaar) 50 mg PO DAILY ONIEL Metoprolol Succinate (Toprol Xl) 125 mg PO DAILY ONIEL Non-Formulary Medication (Warfarin) 3 mg PO ASDIRECTED ONIEL Ondansetron HCl (Zofran) 4 mg IV Q4H PRN PRN Reason: Nausea/Vomiting Sodium Chloride (Saline Flush) 10 ml FLUSH ASDIRECTED PRN PRN Reason: Keep Vein Open Last Admin: 01/22/20 15:13 Dose: 10 ml Documented by: KEN Timolol Maleate (Timoptic 0.5% Ophth Soln) 0 ml EYEBOTH DAILY ONIEL Assessment/Plan Comment:: Failure to thrive Weakness Post right hip fracture s/p total hip replacement COVID-19 infection * Fall with right hip fracture on January 04, 2020 * Right total hip replacement on January 06, 2020 * Discharge from [facility] in [place] on January 16, 2020 * Tested positive for COVID-19 on Monday, January 17, 2020 * Increased weakness and unable to care for self over the weekend. * Both daughters sick with COVID-19. * Brought to the emergency department today for treatment of her increasing weakness and failure to thrive. Atrial fibrillation Hypertension * Rate controlled with Cardizem CD 180 mg in the morning and Toprol-XL 125 mg in the morning. * Patient did state that she has episodes of heart rate in the 40s proximally an hour after she takes her blood pressure medication. * When asked if we could adjust her medications so that it is divided she stated that she wanted her primary care provider to adjust any medication. * Also on Avalide 150-12.5 mg daily for hypertension. Plan * Admit to medical floor on telemetry * Consult physical therapy * Consult social sciences professor and case management * Continue home meds, pharmacy to continue following warfarin * CBC, CMP, INR, mag in the morning. * Strict isolation for COVID-19 * No need for COVID specific treatment. She is on room air and asymptomatic except for weakness. VTE prophylaxis with warfarin CODE STATUS: Full code Disposition: Admit to medical floor for physical therapy and possible SNF placement. - Mortality Measure Prognosis:: Good
[2020-01-22] MEDS: Latanoprost 0.005% Ophth Soln 2.5 ML Bottle EYEBOTH SCH (20:48)
[2020-01-23] MEDS ORDERED: Diltiazem 180 MG Cap.CD PO SCH (09:00)
[2020-01-23] MEDS ORDERED: Potassium Chloride 20 MEQ Tab.ER PO ONE (09:15)
[2020-01-23] MEDS: Metoprolol Succinate 50 MG Tab.ER PO SCH (09:19)
[2020-01-23] MEDS: Doxazosin 2 MG Tab PO SCH (09:20)
[2020-01-23] MEDS: Hydrochlorothiazide 12.5 MG Cap PO SCH (09:20)
[2020-01-23] MEDS: Losartan 25 MG Tab PO SCH (09:21)
[2020-01-23] MEDS: Timolol Maleate 0.5% Ophth Soln 5 ML Bottle EYEBOTH SCH (09:22)
[2020-01-23] MEDS ORDERED: Magnesium Sulfate/Water 2 GM/50 ML BAG IV ONE (09:30)
--- NOTE | 2020-01-23 14:31 | PCM.PN ---
- General Info Date of Service: 01/23/20 Admission Dx/Problem (Free Text): Admission Diagnosis/Problem Admission Diagnosis/Problem Weakness Subjective Update: Pt doing well. States that she feels the best today that she has in a long time. Denies cough or shortness of breath. States appetite is returning. Functional Status: Reports: Tolerating Diet, Ambulating, Urinating. Denies: Incentive Spirometry - Review of Systems General: Reports: No Symptoms HEENT: Reports: No Symptoms Pulmonary: Reports: No Symptoms Cardiovascular: Reports: Edema (trach) Gastrointestinal: Reports: No Symptoms Genitourinary: Reports: No Symptoms Musculoskeletal: Reports: No Symptoms Skin: Reports: No Symptoms Neurological: Reports: No Symptoms Psychiatric: Reports: No Symptoms - Patient Data Vitals - Most Recent: Last Vital Signs Temp 97.5 F 01/23/20 07:59 Pulse 82 01/23/20 09:19 Resp 18 01/23/20 07:59 BP 132/88 01/23/20 09:21 Pulse Ox 94 L 01/23/20 07:59 Weight - Most Recent: 174 lb 14.4 oz I&O - Last 24 Hours: Intake & Output 01/22/20 01/23/20 01/23/20 22:59 06:59 14:59 Intake Total 300 240 Output Total 1350 Balance -1050 240 Lab Results Last 24 Hours: Laboratory Results - last 24 hr 01/22/20 01/22/20 01/22/20 Range/Units 15:29 15:29 15:29 WBC 4.47 (3.98-10.04) K/mm3 RBC 3.48 L (3.98-5.22) M/mm3 Hgb 10.5 L D (11.2-15.7) gm/dl Hct 32.0 L (34.1-44.9) % MCV 92.0 (79.4-94.8) fl MCH 30.2 (25.6-32.2) pg MCHC 32.8 (32.2-35.5) g/dl RDW Std Deviation 45.6 (36.4-46.3) fL Plt Count 321 D (182-369) K/mm3 MPV 9.7 (9.4-12.3) fl Neut % (Auto) 58.0 (34.0-71.1) % Lymph % (Auto) 21.7 (19.3-51.7) % [place] % (Auto) 17.9 H (4.7-12.5) % Eos % (Auto) 2.0 (0.7-5.8) Baso % (Auto) 0.2 (0.1-1.2) % Neut # (Auto) 2.59 (1.56-6.13) K/mm3 Lymph # (Auto) 0.97 L (1.18-3.74) K/mm3 [place] # (Auto) 0.80 H (0.24-0.36) K/mm3 Eos # (Auto) 0.09 (0.04-0.36) K/mm3 Baso # (Auto) 0.01 (0.01-0.08) K/mm3 Manual Slide Review Normal smear PT (9.7-11.7) SECONDS INR APTT (22-31) SECONDS D-Dimer, Quantitative 1.29 H (0.19-0.50) mg/L Sodium 132 L (136-145) mEq/L Potassium 3.6 (3.5-5.1) mEq/L Chloride 97 L (98-107) mEq/L Carbon Dioxide 27 (21-32) mEq/L Anion Gap 11.6 (5-15) BUN 19 H (7-18) mg/dL Creatinine 0.8 (0.55-1.02) mg/dL Est Cr Clr Drug Dosing 53.20 mL/min Estimated GFR (MDRD) > 60 (>60) mL/min BUN/Creatinine Ratio 23.8 H (14-18) Glucose 112 (83-115) mg/dL Lactic Acid (0.4-2.0) mmol/L Calcium 8.5 (8.5-10.1) mg/dL Magnesium 1.5 L (1.8-2.4) mg/dl Total Bilirubin 0.5 (0.2-1.0) mg/dL AST 16 (15-37) U/L ALT 21 (14-59) U/L Alkaline Phosphatase 116 (46-116) U/L Troponin I 0.019 (0.00-0.056) ng/mL C-Reactive Protein 2.0 H* (<1.0) mg/dL Total Protein 6.2 L (6.4-8.2) g/dl Albumin 2.7 L (3.4-5.0) g/dl Globulin 3.5 gm/dL Albumin/Globulin Ratio 0.8 L (1-2) Urine Color (Yellow) Urine Appearance (Clear) Urine pH (5.0-8.0) Ur Specific [place] (1.005-1.030) Urine Protein (Negative) Urine Glucose (UA) (Negative) Urine Ketones (Negative) Urine Occult Blood (Negative) Urine Nitrite (Negative) Urine Bilirubin (Negative) Urine Urobilinogen (0.2-1.0) Ur Leukocyte Esterase (Negative) Urine RBC (0-5) /hpf Urine WBC (0-5) /hpf Ur Squamous Epith Cells (0-5) /hpf Urine Bacteria (FEW) /hpf Urine Mucus (FEW) /hpf 01/22/20 01/22/20 01/22/20 Range/Units 15:29 15:29 15:35 WBC (3.98-10.04) K/mm3 RBC (3.98-5.22) M/mm3 Hgb (11.2-15.7) gm/dl Hct (34.1-44.9) % MCV (79.4-94.8) fl MCH (25.6-32.2) pg MCHC (32.2-35.5) g/dl RDW Std Deviation (36.4-46.3) fL Plt Count (182-369) K/mm3 MPV (9.4-12.3) fl Neut % (Auto) (34.0-71.1) % Lymph % (Auto) (19.3-51.7) % [place] % (Auto) (4.7-12.5) % Eos % (Auto) (0.7-5.8) Baso % (Auto) (0.1-1.2) % Neut # (Auto) (1.56-6.13) K/mm3 Lymph # (Auto) (1.18-3.74) K/mm3 [place] # (Auto) (0.24-0.36) K/mm3 Eos # (Auto) (0.04-0.36) K/mm3 Baso # (Auto) (0.01-0.08) K/mm3 Manual Slide Review PT 22.6 H (9.7-11.7) SECONDS INR 2.14 APTT 39 H (22-31) SECONDS D-Dimer, Quantitative (0.19-0.50) mg/L Sodium (136-145) mEq/L Potassium (3.5-5.1) mEq/L Chloride (98-107) mEq/L Carbon Dioxide (21-32) mEq/L Anion Gap (5-15) BUN (7-18) mg/dL Creatinine (0.55-1.02) mg/dL Est Cr Clr Drug Dosing mL/min Estimated GFR (MDRD) (>60) mL/min BUN/Creatinine Ratio (14-18) Glucose (83-115) mg/dL Lactic Acid 0.9 (0.4-2.0) mmol/L Calcium (8.5-10.1) mg/dL Magnesium (1.8-2.4) mg/dl Total Bilirubin (0.2-1.0) mg/dL AST (15-37) U/L ALT (14-59) U/L Alkaline Phosphatase (46-116) U/L Troponin I (0.00-0.056) ng/mL C-Reactive Protein (<1.0) mg/dL Total Protein (6.4-8.2) g/dl Albumin (3.4-5.0) g/dl Globulin gm/dL Albumin/Globulin Ratio (1-2) Urine Color Yellow (Yellow) Urine Appearance Clear (Clear) Urine pH 6.0 (5.0-8.0) Ur Specific [place] 1.025 (1.005-1.030) Urine Protein Negative (Negative) Urine Glucose (UA) Negative (Negative) Urine Ketones Negative (Negative) Urine Occult Blood Negative (Negative) Urine Nitrite Negative (Negative) Urine Bilirubin Negative (Negative) Urine Urobilinogen 0.2 (0.2-1.0) Ur Leukocyte Esterase Negative (Negative) Urine RBC Not seen (0-5) /hpf Urine WBC 0-5 (0-5) /hpf Ur Squamous Epith Cells 5-10 H (0-5) /hpf Urine Bacteria Not seen (FEW) /hpf Urine Mucus Not seen (FEW) /hpf 01/23/20 01/23/20 01/23/20 Range/Units 05:38 05:38 05:38 WBC 4.12 (3.98-10.04) K/mm3 RBC 3.59 L (3.98-5.22) M/mm3 Hgb 10.6 L (11.2-15.7) gm/dl Hct 33.0 L (34.1-44.9) % MCV 91.9 (79.4-94.8) fl MCH 29.5 (25.6-32.2) pg MCHC 32.1 L (32.2-35.5) g/dl RDW Std Deviation 45.4 (36.4-46.3) fL Plt Count 304 (182-369) K/mm3 MPV 10.0 (9.4-12.3) fl Neut % (Auto) 61.5 (34.0-71.1) % Lymph % (Auto) 18.7 L (19.3-51.7) % [place] % (Auto) 17.2 H (4.7-12.5) % Eos % (Auto) 2.2 (0.7-5.8) Baso % (Auto) 0.2 (0.1-1.2) % Neut # (Auto) 2.53 (1.56-6.13) K/mm3 Lymph # (Auto) 0.77 L (1.18-3.74) K/mm3 [place] # (Auto) 0.71 H (0.24-0.36) K/mm3 Eos # (Auto) 0.09 (0.04-0.36) K/mm3 Baso # (Auto) 0.01 (0.01-0.08) K/mm3 Manual Slide Review Normal smear PT 19.7 H (9.7-11.7) SECONDS INR 1.86 APTT (22-31) SECONDS D-Dimer, Quantitative (0.19-0.50) mg/L Sodium 134 L (136-145) mEq/L Potassium 3.6 (3.5-5.1) mEq/L Chloride 98 (98-107) mEq/L Carbon Dioxide 29 (21-32) mEq/L Anion Gap 10.6 (5-15) BUN 13 (7-18) mg/dL Creatinine 0.8 (0.55-1.02) mg/dL Est Cr Clr Drug Dosing 52.15 mL/min Estimated GFR (MDRD) > 60 (>60) mL/min BUN/Creatinine Ratio 16.3 (14-18) Glucose 94 (83-115) mg/dL Lactic Acid (0.4-2.0) mmol/L Calcium 8.4 L (8.5-10.1) mg/dL Magnesium 1.4 L (1.8-2.4) mg/dl Total Bilirubin 0.6 (0.2-1.0) mg/dL AST 16 (15-37) U/L ALT 21 (14-59) U/L Alkaline Phosphatase 114 (46-116) U/L Troponin I (0.00-0.056) ng/mL C-Reactive Protein (<1.0) mg/dL Total Protein 6.1 L (6.4-8.2) g/dl Albumin 2.6 L (3.4-5.0) g/dl Globulin 3.5 gm/dL Albumin/Globulin Ratio 0.7 L (1-2) Urine Color (Yellow) Urine Appearance (Clear) Urine pH (5.0-8.0) Ur Specific [place] (1.005-1.030) Urine Protein (Negative) Urine Glucose (UA) (Negative) Urine Ketones (Negative) Urine Occult Blood (Negative) Urine Nitrite (Negative) Urine Bilirubin (Negative) Urine Urobilinogen (0.2-1.0) Ur Leukocyte Esterase (Negative) Urine RBC (0-5) /hpf Urine WBC (0-5) /hpf Ur Squamous Epith Cells (0-5) /hpf Urine Bacteria (FEW) /hpf Urine Mucus (FEW) /hpf Med Orders - Current: Current Medications Acetaminophen (Tylenol) 650 mg PO Q4H PRN PRN Reason: Pain (Mild 1-3)/fever Doxazosin Mesylate (Cardura) 1 mg PO DAILY [facility] Last Admin: 01/23/20 09:20 Dose: 1 mg Documented by: Hydrochlorothiazide (Hydrochlorothiazide) 12.5 mg PO DAILY [facility] Last Admin: 01/23/20 09:20 Dose: 12.5 mg Documented by: Latanoprost (Xalatan 0.005% Ophth Soln) 0 ml EYEBOTH BEDTIME [facility] Last Admin: 01/22/20 20:48 Dose: 1 drop Documented by: Losartan Potassium (Cozaar) 50 mg PO DAILY [facility] Last Admin: 01/23/20 09:21 Dose: 50 mg Documented by: Metoprolol Succinate (Toprol Xl) 125 mg PO DAILY [facility] Last Admin: 01/23/20 09:19 Dose: 125 mg Documented by: Ondansetron HCl (Zofran) 4 mg IV Q4H PRN PRN Reason: Nausea/Vomiting Sodium Chloride (Saline Flush) 10 ml FLUSH ASDIRECTED PRN PRN Reason: Keep Vein Open Last Admin: 01/22/20 15:13 Dose: 10 ml Documented by: Timolol Maleate (Timoptic 0.5% Ophth Soln) 0 ml EYEBOTH DAILY [facility] Last Admin: 01/23/20 09:22 Dose: 1 drop Documented by: Warfarin Sodium (Pharmacy To Dose - Warfarin) 1 dose PO ASDIRECTED PRN PRN Reason: RX TO DOSE WARFARIN Warfarin Sodium (Coumadin) 3 mg PO QPM [facility] Stop: 01/23/20 18:01 Discontinued Medications Diltiazem HCl (Cardizem Cd) 180 mg PO DAILY [facility] Last Admin: 01/23/20 09:17 Dose: 180 mg Documented by: Magnesium Sulfate (Magnesium Sulfate In Water Premix) 2 gm in 50 mls @ 25 mls/hr IV ONETIME ONE Stop: 01/23/20 11:29 Last Admin: 01/23/20 09:33 Dose: 25 mls/hr Documented by: Influenza Virus Vaccine (Fluzone High-Dose Quad ) 240 mcg IM .ONCE ONE Stop: 01/22/20 18:01 Potassium Chloride (Klor-Con M20) 40 meq PO ONETIME ONE Stop: 01/23/20 09:16 Last Admin: 01/23/20 09:31 Dose: 40 meq Documented by: - Exam Quality Assessment: DVT Prophylaxis (on coumadin). No: Supplemental Oxygen General: Alert, Oriented, Cooperative, No Acute Distress HEENT: Pupils Equal, Mucous Membr. Moist/[place] Neck: Supple, Trachea Midline. No: Lymphadenopathy Lungs: Clear to Auscultation, Normal Respiratory Effort Cardiovascular: Regular Rate, Regular Rhythm GI/Abdominal Exam: Normal Bowel Sounds, Soft, Non-Tender, No Distention (Female) Exam: Deferred Back Exam: Normal Inspection, Full Range of Motion Extremities: Normal Inspection, Normal Range of Motion, Non-Tender, Normal Capillary Refill, Pedal Edema (trace) Peripheral Pulses: 2+: Radial (L), Radial (R), Dorsalis Pedis (L), Dorsalis Pedis (R) Skin: Warm, Dry, Intact Neurological: No New Focal Deficit Psy/Mental Status: Alert, Normal Affect, Normal Mood Sepsis Event Note - Evaluation Sepsis Screening Result: No Definite Risk - Focused Exam Vital Signs: Vital Signs Temp Pulse Resp BP Pulse Ox 01/23/20 09:21 132/88 01/23/20 09:20 132/88 01/23/20 09:19 82 132/88 01/23/20 09:14 132/88 01/23/20 07:59 97.5 F 71 18 146/106 H 94 L 01/23/20 03:37 97.7 F 56 L 16 157/80 H 94 L - Problem List & Annotations (1) COVID-19 SNOMED Code(s): 764960176 Code(s): U07.1 - COVID-19 Status: Acute Priority: High Current Visit: Yes (2) Failure to thrive SNOMED Code(s): 93016707 Code(s): ROD6325 - Status: Acute Priority: High Current Visit: Yes (3) Status post fracture of right hip SNOMED Code(s): 614127383 Code(s): Z87.81 - PERSONAL HISTORY OF (HEALED) TRAUMATIC FRACTURE Status: Acute Priority: High Current Visit: Yes (4) Weakness SNOMED Code(s): 15477853 Code(s): R53.1 - WEAKNESS Status: Acute Priority: High Current Visit: Yes - Problem List Review Problem List Initiated/Reviewed/Updated: Yes - My Orders Last 24 Hours: My Active Orders 01/23/20 08:36 Consult to Case Management/Electric Switch Tester [CONS] Routine Consult to Patient Care Secretary [CONS] Routine OT Evaluation and Treatment [CONS] Routine 01/23/20 08:37 Isolation [COMM] Routine - Assessment Assessment:: 01/23/20 * Doing much better today. * On room air * Heart rate dropping into the 30's and 40's on telemetry. Pt is asymptomatic with this. She states that she does not want her medications changed by anyone besides her primary physician. Dr. Guidry was called regarding the patient and he was agreeable to cardiac medications being changed while in the hospital. * Consult policy cancellation clerk regarding decreased appetite. * Potassium 3.6 * BUN 13 * Creatinine 0.8 * GFR greater than 60 * Magnesium 1.4 Plan * Magnesium 2gm IV today * Potassium 40meq po today * PT/OT to continue to work with the patient. * Continue home meds, pharmacy to continue following warfarin * CBC, CMP, CRP, Ddimer, mag in the morning. * Strict isolation for COVID-19 * Continues on room air and asymptomatic for Covid except for weakness. * Hold cardizem while in the hospital. 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 Pt doing much better. Tentative discharge on 01/23 or 01/24
[2020-01-23] MEDS ORDERED: Warfarin 3 MG Tab PO SCH (18:00)
[2020-01-23] MEDS: Latanoprost 0.005% Ophth Soln 2.5 ML Bottle EYEBOTH SCH (21:10)
[2020-01-24] MEDS: Metoprolol Succinate 50 MG Tab.ER PO SCH (08:40)
[2020-01-24] MEDS: Losartan 25 MG Tab PO SCH (08:41)
[2020-01-24] MEDS: Hydrochlorothiazide 12.5 MG Cap PO SCH (08:41)
[2020-01-24] MEDS: Doxazosin 2 MG Tab PO SCH (08:42)
[2020-01-24] MEDS: Timolol Maleate 0.5% Ophth Soln 5 ML Bottle EYEBOTH SCH (08:44)
[2020-01-24] MEDS ORDERED: Magnesium Sulfate/Water 2 GM/50 ML BAG IV ONE (09:30)
--- NOTE | 2020-01-24 13:49 | PCM.PN ---
- General Info Date of Service: 01/24/20 Admission Dx/Problem (Free Text): Admission Diagnosis/Problem Admission Diagnosis/Problem Weakness Subjective Update: Feels tired and more weak today. States that she did not sleep well last night. Functional Status: Reports: Pain Controlled, Tolerating Diet, Ambulating, Urinating - Review of Systems General: Reports: Weakness, Fatigue, Appetite (fair) HEENT: Reports: No Symptoms Pulmonary: Reports: No Symptoms. Denies: Cough Cardiovascular: Reports: No Symptoms. Denies: Edema Gastrointestinal: Reports: No Symptoms Genitourinary: Reports: No Symptoms Musculoskeletal: Reports: No Symptoms Skin: Reports: No Symptoms Neurological: Reports: No Symptoms Psychiatric: Reports: No Symptoms - Patient Data Vitals - Most Recent: Last Vital Signs Temp 97.7 F 01/24/20 08:21 Pulse 66 01/24/20 08:40 Resp 20 01/24/20 08:21 BP 121/78 01/24/20 08:42 Pulse Ox 95 01/24/20 08:21 Weight - Most Recent: 175 lb 1.599 oz I&O - Last 24 Hours: Intake & Output 01/23/20 01/24/20 01/24/20 22:59 06:59 14:59 Intake Total 920 400 Output Total 1050 Balance 920 -650 Lab Results Last 24 Hours: Laboratory Results - last 24 hr 01/24/20 01/24/20 01/24/20 Range/Units 05:40 05:40 05:40 WBC 3.69 L (3.98-10.04) K/mm3 RBC 3.84 L (3.98-5.22) M/mm3 Hgb 11.3 (11.2-15.7) gm/dl Hct 35.5 (34.1-44.9) % MCV 92.4 (79.4-94.8) fl MCH 29.4 (25.6-32.2) pg MCHC 31.8 L (32.2-35.5) g/dl RDW Std Deviation 46.6 H (36.4-46.3) fL Plt Count 322 (182-369) K/mm3 MPV 10.3 (9.4-12.3) fl Neut % (Auto) 49.6 (34.0-71.1) % Lymph % (Auto) 27.1 (19.3-51.7) % [place] % (Auto) 15.7 H (4.7-12.5) % Eos % (Auto) 6.8 H (0.7-5.8) Baso % (Auto) 0.3 (0.1-1.2) % Neut # (Auto) 1.83 (1.56-6.13) K/mm3 Lymph # (Auto) 1.00 L (1.18-3.74) K/mm3 [place] # (Auto) 0.58 H (0.24-0.36) K/mm3 Eos # (Auto) 0.25 (0.04-0.36) K/mm3 Baso # (Auto) 0.01 (0.01-0.08) K/mm3 Manual Slide Review Normal smear PT 16.9 H (9.7-11.7) SECONDS INR 1.59 D-Dimer, Quantitative 1.68 H (0.19-0.50) mg/L Sodium (136-145) mEq/L Potassium (3.5-5.1) mEq/L Chloride (98-107) mEq/L Carbon Dioxide (21-32) mEq/L Anion Gap (5-15) BUN (7-18) mg/dL Creatinine (0.55-1.02) mg/dL Est Cr Clr Drug Dosing mL/min Estimated GFR (MDRD) (>60) mL/min BUN/Creatinine Ratio (14-18) Glucose (83-115) mg/dL Calcium (8.5-10.1) mg/dL Magnesium (1.8-2.4) mg/dl Total Bilirubin (0.2-1.0) mg/dL AST (15-37) U/L ALT (14-59) U/L Alkaline Phosphatase (46-116) U/L C-Reactive Protein (<1.0) mg/dL Total Protein (6.4-8.2) g/dl Albumin (3.4-5.0) g/dl Globulin gm/dL Albumin/Globulin Ratio (1-2) 01/24/20 Range/Units 05:40 WBC (3.98-10.04) K/mm3 RBC (3.98-5.22) M/mm3 Hgb (11.2-15.7) gm/dl Hct (34.1-44.9) % MCV (79.4-94.8) fl MCH (25.6-32.2) pg MCHC (32.2-35.5) g/dl RDW Std Deviation (36.4-46.3) fL Plt Count (182-369) K/mm3 MPV (9.4-12.3) fl Neut % (Auto) (34.0-71.1) % Lymph % (Auto) (19.3-51.7) % [place] % (Auto) (4.7-12.5) % Eos % (Auto) (0.7-5.8) Baso % (Auto) (0.1-1.2) % Neut # (Auto) (1.56-6.13) K/mm3 Lymph # (Auto) (1.18-3.74) K/mm3 [place] # (Auto) (0.24-0.36) K/mm3 Eos # (Auto) (0.04-0.36) K/mm3 Baso # (Auto) (0.01-0.08) K/mm3 Manual Slide Review PT (9.7-11.7) SECONDS INR D-Dimer, Quantitative (0.19-0.50) mg/L Sodium 134 L (136-145) mEq/L Potassium 4.4 (3.5-5.1) mEq/L Chloride 97 L (98-107) mEq/L Carbon Dioxide 28 (21-32) mEq/L Anion Gap 13.4 (5-15) BUN 14 (7-18) mg/dL Creatinine 0.8 (0.55-1.02) mg/dL Est Cr Clr Drug Dosing 52.15 mL/min Estimated GFR (MDRD) > 60 (>60) mL/min BUN/Creatinine Ratio 17.5 (14-18) Glucose 102 (83-115) mg/dL Calcium 8.8 (8.5-10.1) mg/dL Magnesium 1.7 L (1.8-2.4) mg/dl Total Bilirubin 0.6 (0.2-1.0) mg/dL AST 16 (15-37) U/L ALT 26 (14-59) U/L Alkaline Phosphatase 129 H (46-116) U/L C-Reactive Protein 1.9 H* (<1.0) mg/dL Total Protein 6.6 (6.4-8.2) g/dl Albumin 2.8 L (3.4-5.0) g/dl Globulin 3.8 gm/dL Albumin/Globulin Ratio 0.7 L (1-2) Med Orders - Current: Current Medications Acetaminophen (Tylenol) 650 mg PO Q4H PRN PRN Reason: Pain (Mild 1-3)/fever Doxazosin Mesylate (Cardura) 1 mg PO DAILY [facility] Last Admin: 01/24/20 08:42 Dose: 1 mg Documented by: Hydrochlorothiazide (Hydrochlorothiazide) 12.5 mg PO DAILY [facility] Last Admin: 01/24/20 08:41 Dose: 12.5 mg Documented by: Latanoprost (Xalatan 0.005% Ophth Soln) 0 ml EYEBOTH BEDTIME [facility] Last Admin: 01/23/20 21:10 Dose: 1 drop Documented by: Losartan Potassium (Cozaar) 50 mg PO DAILY [facility] Last Admin: 01/24/20 08:41 Dose: 50 mg Documented by: Metoprolol Succinate (Toprol Xl) 125 mg PO DAILY [facility] Last Admin: 01/24/20 08:40 Dose: 125 mg Documented by: Ondansetron HCl (Zofran) 4 mg IV Q4H PRN PRN Reason: Nausea/Vomiting Sodium Chloride (Saline Flush) 10 ml FLUSH ASDIRECTED PRN PRN Reason: Keep Vein Open Last Admin: 01/22/20 15:13 Dose: 10 ml Documented by: Timolol Maleate (Timoptic 0.5% Ophth Soln) 0 ml EYEBOTH DAILY [facility] Last Admin: 01/24/20 08:44 Dose: 1 drop Documented by: Warfarin Sodium (Pharmacy To Dose - Warfarin) 1 dose PO ASDIRECTED PRN PRN Reason: RX TO DOSE WARFARIN Warfarin Sodium (Coumadin) 5 mg PO QPM [facility] Stop: 01/24/20 18:01 Discontinued Medications Diltiazem HCl (Cardizem Cd) 180 mg PO DAILY [facility] Last Admin: 01/23/20 09:17 Dose: 180 mg Documented by: Magnesium Sulfate (Magnesium Sulfate In Water Premix) 2 gm in 50 mls @ 25 mls/hr IV ONETIME ONE Stop: 01/23/20 11:29 Last Admin: 01/23/20 09:33 Dose: 25 mls/hr Documented by: Magnesium Sulfate (Magnesium Sulfate In Water Premix) 2 gm in 50 mls @ 25 mls/hr IV ONETIME ONE Stop: 01/24/20 11:29 Last Admin: 01/24/20 10:13 Dose: 25 mls/hr Documented by: Influenza Virus Vaccine (Fluzone High-Dose Quad 2020-) 240 mcg IM .ONCE ONE Stop: 01/22/20 18:01 Potassium Chloride (Klor-Con M20) 40 meq PO ONETIME ONE Stop: 01/23/20 09:16 Last Admin: 01/23/20 09:31 Dose: 40 meq Documented by: Warfarin Sodium (Coumadin) 3 mg PO QPM [facility] Stop: 01/23/20 18:01 Last Admin: 01/23/20 18:08 Dose: 3 mg Documented by: - Exam Quality Assessment: DVT Prophylaxis (on coumadin from home). No: Supplemental Oxygen General: Alert, Oriented, Cooperative, No Acute Distress HEENT: Pupils Equal, Pupils Reactive, Mucous Membr. Moist/[place] Neck: Supple, Trachea Midline. No: Lymphadenopathy Lungs: Clear to Auscultation, Normal Respiratory Effort Cardiovascular: Irregular Rhythm GI/Abdominal Exam: Normal Bowel Sounds, Soft, Non-Tender, No Distention (Female) Exam: Deferred Back Exam: Normal Inspection, Full Range of Motion Extremities: Normal Inspection, Normal Range of Motion, Non-Tender, No Pedal Edema, Normal Capillary Refill Peripheral Pulses: 2+: Radial (L), Radial (R), Dorsalis Pedis (L), Dorsalis Pedis (R) Skin: Warm, Dry, Intact Neurological: No New Focal Deficit Psy/Mental Status: Alert, Normal Affect, Normal Mood Sepsis Event Note - Evaluation Sepsis Screening Result: No Definite Risk - Focused Exam Vital Signs: Vital Signs Temp Pulse Resp BP Pulse Ox 01/24/20 08:42 121/78 01/24/20 08:41 121/78 01/24/20 08:40 66 121/78 01/24/20 08:21 97.7 F 66 20 121/78 95 01/24/20 05:13 64 18 113/69 96 - Problem List & Annotations (1) COVID-19 SNOMED Code(s): 286625453 Code(s): U07.1 - COVID-19 Status: Acute Priority: High Current Visit: Yes (2) Failure to thrive SNOMED Code(s): 35775037 Code(s): CLG6697 - Status: Acute Priority: High Current Visit: Yes (3) Status post fracture of right hip SNOMED Code(s): 536809533 Code(s): Z87.81 - PERSONAL HISTORY OF (HEALED) TRAUMATIC FRACTURE Status: Acute Priority: High Current Visit: Yes (4) Weakness SNOMED Code(s): 81009270 Code(s): R53.1 - WEAKNESS Status: Acute Priority: High Current Visit: Yes - Problem List Review Problem List Initiated/Reviewed/Updated: Yes - Assessment Assessment:: 01/23/20 * Doing much better today. * On room air * Heart rate dropping into the 30's and 40's on telemetry. Pt is asymptomatic with this. She states that she does not want her medications changed by anyone besides her primary physician. Dr. Guidry was called regarding the patient and he was agreeable to cardiac medications being changed while in the hospital. * Consult tooling manager regarding decreased appetite. * Potassium 3.6 * BUN 13 * Creatinine 0.8 * GFR greater than 60 * Magnesium 1.4 Plan * Magnesium 2gm IV today * Potassium 40meq po today * PT/OT to continue to work with the patient. * Continue home meds, pharmacy to continue following warfarin * CBC, CMP, CRP, Ddimer, mag in the morning. * Strict isolation for COVID-19 * Continues on room air and asymptomatic for Covid except for weakness. * Hold cardizem while in the hospital. 01/24/20 * States she's not feeling well today. Did not sleep much last night. * On room air * Heart rate has been in the 40's to 60's afib on telemetry. * D-dimer 1.68 * Sodium 134 * Potassium 4.4 * BUN 14 * Creatinine 0.8 * GFR greater than 60 * Magnesium 1.7 * C-reactive protein 1.9 Plan * Magnesium 2gm IV today * PT/OT to continue to work with the patient. * Continue home meds, pharmacy to continue following warfarin * CBC, CMP, CRP, Ddimer, mag in the morning. * Strict isolation for COVID-19 * Continues on room air and asymptomatic for Covid except for weakness. * Hold cardizem while in the hospital. * Will monitor heart rate for another 24 hours. Plan for discharge tomorrow. 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 Pt doing much better. Tentative discharge on 01/24 resuming home health care, PT, and OT.
[2020-01-24] MEDS ORDERED: Warfarin 5 MG Tab PO SCH (18:00)
[2020-01-24] MEDS: Latanoprost 0.005% Ophth Soln 2.5 ML Bottle EYEBOTH SCH (22:15)
--- NOTE | 2020-01-25 09:50 | PCM.PN ---
- General Info Date of Service: 01/25/20 Admission Dx/Problem (Free Text): Admission Diagnosis/Problem Admission Diagnosis/Problem Weakness Subjective Update: The patient is a 79-year-old lady who was admitted to acute hospitalization on January 22, 2020. She was diagnosed with COVID-19. Patient also had been previously discharged after surgery for broken hip. Patient says that she feels like she can go home. Functional Status: Reports: Pain Controlled, Tolerating Diet - Review of Systems General: Reports: No Symptoms HEENT: Reports: No Symptoms Pulmonary: Reports: No Symptoms Cardiovascular: Reports: No Symptoms Gastrointestinal: Reports: No Symptoms Genitourinary: Reports: No Symptoms Musculoskeletal: Reports: No Symptoms Skin: Reports: No Symptoms Neurological: Reports: No Symptoms Psychiatric: Reports: No Symptoms - Patient Data Vitals - Most Recent: Last Vital Signs Temp 36.8 C 01/25/20 03:15 Pulse 50 L 01/25/20 03:15 Resp 18 01/25/20 03:15 BP 156/63 H 01/25/20 03:19 Pulse Ox 97 01/25/20 03:15 Weight - Most Recent: 78.517 kg I&O - Last 24 Hours: Intake & Output 01/24/20 01/25/20 01/25/20 22:59 06:59 14:59 Intake Total 1505 674 Output Total 650 775 Balance 855 -101 Lab Results Last 24 Hours: Laboratory Results - last 24 hr 01/25/20 Range/Units 05:27 PT 19.6 H (9.7-11.7) SECONDS INR 1.85 Med Orders - Current: Current Medications Acetaminophen (Tylenol) 650 mg PO Q4H PRN PRN Reason: Pain (Mild 1-3)/fever Doxazosin Mesylate (Cardura) 1 mg PO DAILY [facility] Last Admin: 01/24/20 08:42 Dose: 1 mg Documented by: Hydrochlorothiazide (Hydrochlorothiazide) 12.5 mg PO DAILY [facility] Last Admin: 01/24/20 08:41 Dose: 12.5 mg Documented by: Latanoprost (Xalatan 0.005% Ophth Soln) 0 ml EYEBOTH BEDTIME [facility] Last Admin: 01/24/20 22:15 Dose: 1 drop Documented by: Losartan Potassium (Cozaar) 50 mg PO DAILY [facility] Last Admin: 01/24/20 08:41 Dose: 50 mg Documented by: Metoprolol Succinate (Toprol Xl) 125 mg PO DAILY [facility] Last Admin: 01/24/20 08:40 Dose: 125 mg Documented by: Ondansetron HCl (Zofran) 4 mg IV Q4H PRN PRN Reason: Nausea/Vomiting Sodium Chloride (Saline Flush) 10 ml FLUSH ASDIRECTED PRN PRN Reason: Keep Vein Open Last Admin: 01/22/20 15:13 Dose: 10 ml Documented by: Timolol Maleate (Timoptic 0.5% Ophth Soln) 0 ml EYEBOTH DAILY [facility] Last Admin: 01/24/20 08:44 Dose: 1 drop Documented by: Warfarin Sodium (Pharmacy To Dose - Warfarin) 1 dose PO ASDIRECTED PRN PRN Reason: RX TO DOSE WARFARIN Discontinued Medications Diltiazem HCl (Cardizem Cd) 180 mg PO DAILY [facility] Last Admin: 01/23/20 09:17 Dose: 180 mg Documented by: Magnesium Sulfate (Magnesium Sulfate In Water Premix) 2 gm in 50 mls @ 25 mls/hr IV ONETIME ONE Stop: 01/23/20 11:29 Last Admin: 01/23/20 09:33 Dose: 25 mls/hr Documented by: Magnesium Sulfate (Magnesium Sulfate In Water Premix) 2 gm in 50 mls @ 25 mls/hr IV ONETIME ONE Stop: 01/24/20 11:29 Last Admin: 01/24/20 10:13 Dose: 25 mls/hr Documented by: Influenza Virus Vaccine (Fluzone High-Dose Quad 2020-) 240 mcg IM .ONCE ONE Stop: 01/22/20 18:01 Potassium Chloride (Klor-Con M20) 40 meq PO ONETIME ONE Stop: 01/23/20 09:16 Last Admin: 01/23/20 09:31 Dose: 40 meq Documented by: Warfarin Sodium (Coumadin) 3 mg PO QPM [facility] Stop: 01/23/20 18:01 Last Admin: 01/23/20 18:08 Dose: 3 mg Documented by: Warfarin Sodium (Coumadin) 5 mg PO QPM [facility] Stop: 01/24/20 18:01 Last Admin: 01/24/20 17:46 Dose: 5 mg Documented by: - Exam Quality Assessment: No: Supplemental Oxygen General: Alert, Oriented, Cooperative, No Acute Distress HEENT: Pupils Equal, Pupils Reactive Neck: Supple, Trachea Midline Lungs: Clear to Auscultation, Normal Respiratory Effort Cardiovascular: Irregular Rhythm. No: Regular Rhythm GI/Abdominal Exam: Normal Bowel Sounds, Soft, No Distention (Female) Exam: Deferred Back Exam: Normal Inspection, Full Range of Motion (Age-appropriate) Extremities: Normal Inspection, No Pedal Edema Skin: Warm, Dry, Intact Neurological: No New Focal Deficit Psy/Mental Status: Alert, Normal Affect Sepsis Event Note - Evaluation Sepsis Screening Result: No Definite Risk - Focused Exam Vital Signs: Vital Signs Temp Pulse Resp BP Pulse Ox 01/25/20 03:19 156/63 H 01/25/20 03:15 36.8 C 50 L 18 152/54 H 97 - Problem List & Annotations (1) COVID-19 SNOMED Code(s): 088174419 Code(s): U07.1 - COVID-19 Status: Acute Priority: High Current Visit: Yes (2) Status post fracture of right hip SNOMED Code(s): 007621933 Code(s): Z87.81 - PERSONAL HISTORY OF (HEALED) TRAUMATIC FRACTURE Status: Acute Priority: High Current Visit: Yes (3) Weakness SNOMED Code(s): 29722788 Code(s): R53.1 - WEAKNESS Status: Acute Priority: High Current Visit: Yes - Problem List Review Problem List Initiated/Reviewed/Updated: Yes - Assessment Assessment:: 01/23/20 * Doing much better today. * On room air * Heart rate dropping into the 30's and 40's on telemetry. Pt is asymptomatic with this. She states that she does not want her medications changed by anyone besides her primary physician. Dr. Guidry was called regarding the patient and he was agreeable to cardiac medications being changed while in the hospital. * Consult director of video analytics regarding decreased appetite. * Potassium 3.6 * BUN 13 * Creatinine 0.8 * GFR greater than 60 * Magnesium 1.4 Plan * Magnesium 2gm IV today * Potassium 40meq po today * PT/OT to continue to work with the patient. * Continue home meds, pharmacy to continue following warfarin * CBC, CMP, CRP, Ddimer, mag in the morning. * Strict isolation for COVID-19 * Continues on room air and asymptomatic for Covid except for weakness. * Hold cardizem while in the hospital. 01/24/20 * States she's not feeling well today. Did not sleep much last night. * On room air * Heart rate has been in the 40's to 60's afib on telemetry. * D-dimer 1.68 * Sodium 134 * Potassium 4.4 * BUN 14 * Creatinine 0.8 * GFR greater than 60 * Magnesium 1.7 * C-reactive protein 1.9 Plan * Magnesium 2gm IV today * PT/OT to continue to work with the patient. * Continue home meds, pharmacy to continue following warfarin * CBC, CMP, CRP, Ddimer, mag in the morning. * Strict isolation for COVID-19 * Continues on room air and asymptomatic for Covid except for weakness. * Hold cardizem while in the hospital. * Will monitor heart rate for another 24 hours. Plan for discharge tomorrow. 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 Pt doing much better. Tentative discharge on 01/24 resuming home health care, PT, and OT. 01/25/2020 The patient will be kept on telemetry due to her irregular heart rate. To be monitored for bradycardia. If the patient has increase in heart rate will need to consider restarting Cardizem. The patient is also on VTE E prophylaxis. The patient will continue this. I have also ordered PT OT for the patient. An acute hospitalization secondary to d-dimer being elevated. The patient will also have laboratory testings in the morning. She should likely be appropriate for discharge tomorrow.
[2020-01-25] MEDS: Doxazosin 2 MG Tab PO SCH (10:08)
[2020-01-25] MEDS: Hydrochlorothiazide 12.5 MG Cap PO SCH (10:09)
[2020-01-25] MEDS: Metoprolol Succinate 50 MG Tab.ER PO SCH (10:09)
[2020-01-25] MEDS: Losartan 25 MG Tab PO SCH (10:10)
[2020-01-25] MEDS: Timolol Maleate 0.5% Ophth Soln 5 ML Bottle EYEBOTH SCH (10:10)
[2020-01-25] MEDS ORDERED: Warfarin 4 MG Tab PO SCH (18:00)
[2020-01-25] MEDS: Latanoprost 0.005% Ophth Soln 2.5 ML Bottle EYEBOTH SCH (20:47)
[2020-01-26] MEDS: Hydrochlorothiazide 12.5 MG Cap PO SCH (10:20)
[2020-01-26] MEDS: Losartan 25 MG Tab PO SCH (10:23)
[2020-01-26] MEDS: Doxazosin 2 MG Tab PO SCH (10:24)
[2020-01-26] MEDS: Metoprolol Succinate 50 MG Tab.ER PO SCH (10:27)
[2020-01-26] MEDS: Timolol Maleate 0.5% Ophth Soln 5 ML Bottle EYEBOTH SCH (10:31)
--- NOTE | 2020-01-26 13:40 | PCM.DCSUM1 ---
Discharge Summary - Hospital Course Free Text/Narrative:: Patient was admitted secondary to COVID-19. Diagnosis: Stroke: No - Discharge Data Discharge Date: 01/26/20 Discharge Disposition: Home, W Home Health Agency 06 Condition: Good - Referral to Home Health Date of Face to Face Encounter: 01/26/20 Reason for Homebound Status: difficult mobility with walker Primary Care Physician: Nima Guidry MD Skilled Need: Deconditioning due to hospitalization - Discharge Diagnosis/Problem(s) (1) COVID-19 SNOMED Code(s): 409173092 ICD Code: U07.1 - COVID-19 Status: Acute Priority: High Current Visit: Yes (2) Status post fracture of right hip SNOMED Code(s): 585625339 ICD Code: Z87.81 - PERSONAL HISTORY OF (HEALED) TRAUMATIC FRACTURE Status: Acute Priority: High Current Visit: Yes (3) Weakness SNOMED Code(s): 83760695 ICD Code: R53.1 - WEAKNESS Status: Acute Priority: High Current Visit: Yes - Patient Summary/Data Consults: Consultations 01/22/20 19:20 PT Evaluation and Treatment [CONS] Routine 01/23/20 08:36 Consult to Case Management/Chair Car Attendant [CONS] Routine Consult to Liner Man [CONS] Routine OT Evaluation and Treatment [CONS] Routine Hospital Course: The patient is a 79-year-old lady who had been admitted January 22, 2020 after testing positive for COVID-19. The patient originally had been in [facility] on January 04, 2020 after falling and fracturing her right hip. She had subsequent surgery. The patient prior to admission reported that she had worsening weakness, fatigue and loss of appetite. Interestingly the patient also was noted to have decreased sense of taste. Upon admission the patient was noted to have an elevated d-dimer at 1.29 and an INR of 2.14. The patient was to have improvement in her INR at 2.69 by time of discharge. She had continue to improve overall through the course of hospitalization. The patient also had been consulted with physical and Occupational Therapy and it was recommended that the patient have home health care. Patient says that she has home health care visiting once a week. Patient otherwise had been hemodynamically stable throughout her course of hospitalization. Patient's blood pressure upon discharge was noted to be 127/66 mmHg. Patient also has been recommended to continue with her regular heart healthy diet as tolerated. She is also to continue all of her medications. The patient is to have activity as tolerated. It has been discharged from hospitalization with the recommendations listed above. - Patient Instructions Diet: Heart Healthy Diet Activity: As Tolerated Notify Provider of: Fever, Increased Pain - Discharge Plan *PRESCRIPTION DRUG MONITORING PROGRAM REVIEWED*: Not Applicable *COPY OF PRESCRIPTION DRUG MONITORING REPORT IN PATIENT JP: Not Applicable Home Medications: Home Meds Metoprolol Succinate [Toprol XL] 125 mg PO DAILY 08/22/13 [History] Warfarin [Coumadin] 3 mg PO ASDIRECTED 08/22/13 [History] Doxazosin Mesylate [Cardura] 1 mg PO DAILY 04/25/19 [History] Irbesartan/Hydrochlorothiazide [Avalide 150-12.5 mg Tablet] 150 mg PO DAILY 01/22/20 [History] Latanoprost 1 drop EYEBOTH BEDTIME 01/22/20 [History] Pediatric Multivit No.50/DHA [Flintstones Gummies Chew Tab] 1 tab PO DAILY 01/22/20 [History] timoloL maleate [Timoptic 0.5% Ophth Soln] 1 drop EYEBOTH DAILY 01/22/20 [History] Ondansetron [Zofran] 4 mg IV Q4H PRN vial 01/26/20 [Rx] Pharmacy to Dose - Warfarin 1 dose PO ASDIRECTED PRN each 01/26/20 [Rx] Warfarin [Coumadin] 1 mg PO QPM tablet 01/26/20 [Rx] hydroCHLOROthiazide [Hydrochlorothiazide] 12.5 mg PO DAILY cap 01/26/20 [Rx] Oxygen Therapy Mode: Room Air Patient Handouts: Vitamin K Foods and Warfarin, COVID-19, Sepsis, Diagnosis, Adult, COVID-19: How to Protect Yourself and Others - [facility] Forms: ED Department Discharge Referrals: Nima Guidry MD [Primary Care Provider] - (please schedule a hospital follow up appointment within 7-10 days.) - Discharge Summary/Plan Comment DC Time >30 min.: Yes - General Info Date of Service: 01/26/20 Admission Dx/Problem (Free Text: Admission Diagnosis/Problem Admission Diagnosis/Problem Weakness Subjective Update: The patient is a 79-year-old lady who was admitted to acute hospitalization on January 22, 2020. She was diagnosed with COVID-19. Patient also had been previously discharged after surgery for broken hip. Patient says that she feels like she can go home. Functional Status: Reports: Pain Controlled - Review of Systems General: Reports: No Symptoms HEENT: Reports: No Symptoms Pulmonary: Reports: No Symptoms Cardiovascular: Reports: No Symptoms Gastrointestinal: Reports: No Symptoms Genitourinary: Reports: No Symptoms Musculoskeletal: Reports: No Symptoms Skin: Reports: No Symptoms Neurological: Reports: No Symptoms Psychiatric: Reports: No Symptoms - Patient Data Vitals - Most Recent: Last Vital Signs Temp 36.8 C 01/26/20 10:17 Pulse 75 01/26/20 10:27 Resp 16 01/26/20 10:17 BP 139/58 L 01/26/20 10:27 Pulse Ox 95 01/26/20 10:17 Weight - Most Recent: 76.385 kg I&O - Last 24 hours: Intake & Output 01/25/20 01/26/20 01/26/20 22:59 06:59 14:59 Intake Total 1240 450 480 Output Total 625 Balance 1240 -175 480 Lab Results - Last 24 hrs: Laboratory Results - last 24 hr 01/26/20 01/26/20 01/26/20 Range/Units 08:20 08:20 08:20 WBC 5.14 (3.98-10.04) K/mm3 RBC 4.11 (3.98-5.22) M/mm3 Hgb 12.4 (11.2-15.7) gm/dl Hct 38.1 (34.1-44.9) % MCV 92.7 (79.4-94.8) fl MCH 30.2 (25.6-32.2) pg MCHC 32.5 (32.2-35.5) g/dl RDW Std Deviation 46.5 H (36.4-46.3) fL Plt Count 249 (182-369) K/mm3 MPV 10.0 (9.4-12.3) fl Neut % (Auto) 61.4 (34.0-71.1) % Lymph % (Auto) 23.2 (19.3-51.7) % [place] % (Auto) 11.5 (4.7-12.5) % Eos % (Auto) 3.3 (0.7-5.8) Baso % (Auto) 0.4 (0.1-1.2) % Neut # (Auto) 3.16 (1.56-6.13) K/mm3 Lymph # (Auto) 1.19 (1.18-3.74) K/mm3 [place] # (Auto) 0.59 H (0.24-0.36) K/mm3 Eos # (Auto) 0.17 (0.04-0.36) K/mm3 Baso # (Auto) 0.02 (0.01-0.08) K/mm3 PT 28.2 H D (9.7-11.7) SECONDS INR 2.69 D-Dimer, Quantitative 2.05 H (0.19-0.50) mg/L Sodium (136-145) mEq/L Potassium (3.5-5.1) mEq/L Chloride (98-107) mEq/L Carbon Dioxide (21-32) mEq/L Anion Gap (5-15) BUN (7-18) mg/dL Creatinine (0.55-1.02) mg/dL Est Cr Clr Drug Dosing mL/min Estimated GFR (MDRD) (>60) mL/min BUN/Creatinine Ratio (14-18) Glucose (83-115) mg/dL Calcium (8.5-10.1) mg/dL C-Reactive Protein (<1.0) mg/dL 01/26/20 Range/Units 08:20 WBC (3.98-10.04) K/mm3 RBC (3.98-5.22) M/mm3 Hgb (11.2-15.7) gm/dl Hct (34.1-44.9) % MCV (79.4-94.8) fl MCH (25.6-32.2) pg MCHC (32.2-35.5) g/dl RDW Std Deviation (36.4-46.3) fL Plt Count (182-369) K/mm3 MPV (9.4-12.3) fl Neut % (Auto) (34.0-71.1) % Lymph % (Auto) (19.3-51.7) % [place] % (Auto) (4.7-12.5) % Eos % (Auto) (0.7-5.8) Baso % (Auto) (0.1-1.2) % Neut # (Auto) (1.56-6.13) K/mm3 Lymph # (Auto) (1.18-3.74) K/mm3 [place] # (Auto) (0.24-0.36) K/mm3 Eos # (Auto) (0.04-0.36) K/mm3 Baso # (Auto) (0.01-0.08) K/mm3 PT (9.7-11.7) SECONDS INR D-Dimer, Quantitative (0.19-0.50) mg/L Sodium 134 L (136-145) mEq/L Potassium 4.2 (3.5-5.1) mEq/L Chloride 97 L (98-107) mEq/L Carbon Dioxide 27 (21-32) mEq/L Anion Gap 14.2 (5-15) BUN 15 (7-18) mg/dL Creatinine 0.8 (0.55-1.02) mg/dL Est Cr Clr Drug Dosing 52.07 mL/min Estimated GFR (MDRD) > 60 (>60) mL/min BUN/Creatinine Ratio 18.8 H (14-18) Glucose 108 (83-115) mg/dL Calcium 8.8 (8.5-10.1) mg/dL C-Reactive Protein 1.9 H* (<1.0) mg/dL Med Orders - Current: Current Medications Acetaminophen (Tylenol) 650 mg PO Q4H PRN PRN Reason: Pain (Mild 1-3)/fever Doxazosin Mesylate (Cardura) 1 mg PO DAILY [facility] Last Admin: 01/26/20 10:24 Dose: 1 mg Documented by: Hydrochlorothiazide (Hydrochlorothiazide) 12.5 mg PO DAILY [facility] Last Admin: 01/26/20 10:20 Dose: 12.5 mg Documented by: Latanoprost (Xalatan 0.005% Ophth Soln) 0 ml EYEBOTH BEDTIME [facility] Last Admin: 01/25/20 20:47 Dose: 1 drop Documented by: Losartan Potassium (Cozaar) 50 mg PO DAILY [facility] Last Admin: 01/26/20 10:23 Dose: 50 mg Documented by: Metoprolol Succinate (Toprol Xl) 125 mg PO DAILY [facility] Last Admin: 01/26/20 10:27 Dose: 125 mg Documented by: Ondansetron HCl (Zofran) 4 mg IV Q4H PRN PRN Reason: Nausea/Vomiting Sodium Chloride (Saline Flush) 10 ml FLUSH ASDIRECTED PRN PRN Reason: Keep Vein Open Last Admin: 01/22/20 15:13 Dose: 10 ml Documented by: Timolol Maleate (Timoptic 0.5% Ophth Soln) 0 ml EYEBOTH DAILY [facility] Last Admin: 01/26/20 10:31 Dose: 1 drop Documented by: Warfarin Sodium (Pharmacy To Dose - Warfarin) 1 dose PO ASDIRECTED PRN PRN Reason: RX TO DOSE WARFARIN Warfarin Sodium (Coumadin) 1 mg PO QPM [facility] Stop: 01/26/20 18:01 Discontinued Medications Diltiazem HCl (Cardizem Cd) 180 mg PO DAILY [facility] Last Admin: 01/23/20 09:17 Dose: 180 mg Documented by: Magnesium Sulfate (Magnesium Sulfate In Water Premix) 2 gm in 50 mls @ 25 mls/hr IV ONETIME ONE Stop: 01/23/20 11:29 Last Admin: 01/23/20 09:33 Dose: 25 mls/hr Documented by: Magnesium Sulfate (Magnesium Sulfate In Water Premix) 2 gm in 50 mls @ 25 mls/hr IV ONETIME ONE Stop: 01/24/20 11:29 Last Admin: 01/24/20 10:13 Dose: 25 mls/hr Documented by: Influenza Virus Vaccine (Fluzone High-Dose Quad ) 240 mcg IM .ONCE ONE Stop: 01/22/20 18:01 Potassium Chloride (Klor-Con M20) 40 meq PO ONETIME ONE Stop: 01/23/20 09:16 Last Admin: 01/23/20 09:31 Dose: 40 meq Documented by: Warfarin Sodium (Coumadin) 3 mg PO QPM [facility] Stop: 01/23/20 18:01 Last Admin: 01/23/20 18:08 Dose: 3 mg Documented by: Warfarin Sodium (Coumadin) 5 mg PO QPM [facility] Stop: 01/24/20 18:01 Last Admin: 01/24/20 17:46 Dose: 5 mg Documented by: Warfarin Sodium (Coumadin) 4 mg PO QPM [facility] Stop: 01/25/20 18:01 Last Admin: 01/25/20 19:04 Dose: 4 mg Documented by: - Exam Quality Assessment: Denies: Supplemental Oxygen General: Reports: Alert, Oriented, Cooperative HEENT: Reports: Pupils Equal, Pupils Reactive Neck: Reports: Supple, Trachea Midline Lungs: Reports: Clear to Auscultation, Normal Respiratory Effort Cardiovascular: Reports: Regular Rate, Regular Rhythm GI/Abdominal Exam: Normal Bowel Sounds, Soft, No Distention (Female) Exam: Deferred Rectal (Female) Exam: Deferred Back Exam: Reports: Normal Inspection Extremities: Normal Inspection, No Pedal Edema Skin: Reports: Warm, Dry, Intact Wound/Incisions: Reports: Healing Well Neurological: Reports: No New Focal Deficit Psy/Mental Status: Reports: Alert, Normal Affect
== END 2020-01-26 15:00 | disposition home health service (06) | DRG 179 ==
LOC: JD.ED 14:39 → JD.MS 16:21
PROVIDERS: ADMIT Family Medicine; ATTEND Family Medicine
PROC: 8E0ZXY6 Isolation (ICD-10-PCS; principal; 2020-01-22)
DX: U07.1 COVID-19 (principal); R53.1 Weakness; J30.9 Allergic rhinitis, unspecified; W19.XXXD Unspecified fall, subsequent encounter; H54.7 Unspecified visual loss; I48.91 Unspecified atrial fibrillation; H40.9 Unspecified glaucoma; I10 Essential (primary) hypertension; R32 Unspecified urinary incontinence; M19.90 Unspecified osteoarthritis, unspecified site; F41.9 Anxiety disorder, unspecified; F32.9 Major depressive disorder, single episode, unspecified; Z96.641 Presence of right artificial hip joint; R62.7 Adult failure to thrive; Z85.3 Personal history of malignant neoplasm of breast; Z98.890 Other specified postprocedural states; Z98.49 Cataract extraction status, unspecified eye; Z90.89 Acquired absence of other organs; Z90.49 Acquired absence of other specified parts of digestive tract; Z88.8 Allergy status to other drugs, medicaments and biological substances; Z90.710 Acquired absence of both cervix and uterus; Z87.81 Personal history of (healed) traumatic fracture; Z79.01 Long term (current) use of anticoagulants; Z88.6 Allergy status to analgesic agent; Z90.10 Acquired absence of unspecified breast and nipple; Z79.899 Other long term (current) drug therapy; S72.001D Fracture of unspecified part of neck of right femur, subsequent encounter for closed fracture with routine healing
CPT/HCPCS: 36415; 71045; 80048; 80053; 81001; 83605; 83735; 84484; 85025; 85379; 85610; 85730; 86140; 93005; 93010; 97110-GP; 97116-GP; 97161-GP; 97530-GP; 99285; 99285-25; A9270-GY; J3475

== ENCOUNTER 2020-12-29 22:32 | Emergency (ER) | payer MEDICARE, OTHER, MEDICAID ==
[2020-12-30] MEDS ORDERED: Sodium Chloride 0.9% 1,000 ML IV ONE (00:17)
[2020-12-30] MEDS ORDERED: Diltiazem 50 MG/10 ML SDV IVPUSH ONE (00:17)
--- NOTE | 2020-12-30 02:31 | EDM.PDOC ---
ED HPI GENERAL MEDICAL PROBLEM - General Chief Complaint: Cardiovascular Problem Stated Complaint: HIGH BP Time Seen by Provider: 12/29/20 23:58 Source of Information: Reports: Patient History Limitations: Reports: No Limitations - History of Present Illness INITIAL COMMENTS - FREE TEXT/NARRATIVE: Patient is a 80-year-old female who states that she is not feeling well for the last 2 days. She was recently stopped on her Toprol-XL due to bradycardia and placed back on Cardizem which does not appear to be controlling her blood pressure or heart rate well. Patient has been on Cardizem in the past. She is also on Cardura and Avalide. She denies any chest pain but does feel that her vision is blurred and she "does not feel well" denies any chest pain or pressure palpitations. She denies being short of breath or diaphoretic. She denies any nausea vomiting or diarrhea. She has had no bloody or tarry stools. She has had no swelling to her ankles. Patient is also on Coumadin. Duration: Day(s): (2), Waxing/Waning Improves with: Reports: None Worsens with: Reports: None - Related Data Allergies Allergy/AdvReac Type Severity Reaction Status Date / Time aspirin Allergy Vomiting Verified 12/29/20 22:48 ibuprofen Allergy Vomiting Verified 12/29/20 22:48 Home Meds: Home Meds Metoprolol Succinate [Toprol XL] 125 mg PO DAILY 08/22/13 [History] Warfarin [Coumadin] 3 mg PO ASDIRECTED 08/22/13 [History] Doxazosin Mesylate [Cardura] 1 mg PO DAILY 04/25/19 [History] Irbesartan/Hydrochlorothiazide [Avalide 150-12.5 mg Tablet] 150 mg PO DAILY 01/22/20 [History] Latanoprost 1 drop EYEBOTH BEDTIME 01/22/20 [History] Pediatric Multivit No.50/DHA [Flintstones Gummies Chew Tab] 1 tab PO DAILY 01/22/20 [History] timoloL maleate [Timoptic 0.5% Ophth Soln] 1 drop EYEBOTH DAILY 01/22/20 [History] Ondansetron [Zofran] 4 mg IV Q4H PRN vial 01/26/20 [Rx] Pharmacy to Dose - Warfarin 1 dose PO ASDIRECTED PRN each 01/26/20 [Rx] Warfarin [Coumadin] 1 mg PO QPM tablet 01/26/20 [Rx] hydroCHLOROthiazide [Hydrochlorothiazide] 12.5 mg PO DAILY cap 01/26/20 [Rx] Past Medical History HEENT History: Reports: Allergic Rhinitis, Glaucoma Other HEENT History: wears glasses Cardiovascular History: Reports: Afib, Hypertension Respiratory History: Reports: Other (See Below) Other Respiratory History: seasonal allergies Gastrointestinal History: Reports: Other (See Below) Other Gastrointestinal History: n/v Genitourinary History: Reports: Urinary Incontinence SOAP TENDER History: Reports: Other (See Below) Other SOAP TENDER History: 3 kids Musculoskeletal History: Reports: Arthritis, Fracture Other Musculoskeletal History: frx right knee cap; femur bone with screw Neurological History: Reports: None Psychiatric History: Reports: Anxiety, Depression Endocrine/Metabolic History: Reports: None Hematologic History: Reports: None Immunologic History: Reports: None Oncologic (Cancer) History: Reports: Breast Dermatologic History: Reports: None - Infectious Disease History Infectious Disease History: Reports: Chicken Pox, Measles, Mumps, Novel Coronavirus, Rubella, Shingles - Past Surgical History Head Surgeries/Procedures: Reports: None HEENT Surgical History: Reports: Cataract Surgery, Oral Surgery, Tonsillectomy Other HEENT Surgeries/Procedures: surgery for glaucoma Cardiovascular Surgical History: Reports: None Respiratory Surgical History: Reports: None GI Surgical History: Reports: Appendectomy, Cholecystectomy, Other (See Below) Other GI Surgeries/Procedures: hemmoroid surgery Female Surgical History: Reports: Hysterectomy Other Female Surgeries/Procedures: right mastectomy in 2012 Musculoskeletal Surgical History: Reports: Hip Replacement, ORIF, Other (See Below) Other Musculoskeletal Surgeries/Procedures:: right hip replacement 2019 Oncologic Surgical History: Reports: Mastectomy Other Oncologic Surgeries/Procedures: Reconstrudctive surgery after mastectomy Dermatological Surgical History: Reports: Plastic Surgical Reconstruction/Repair Social & Family History - Family History Family Medical History: No Pertinent Family History Cardiac: Reports: [place] Neurological: Reports: CVA - Tobacco Use Tobacco Use Status *Q: Unknown Ever Used Tobacco - Caffeine Use Caffeine Use: Reports: Soda - Living Situation & Occupation Living situation: Reports: Single, Alone Occupation: Retired ED ROS GENERAL - Review of Systems Review Of Systems: Comprehensive ROS is negative, except as noted in HPI. Constitutional: Reports: No Symptoms Respiratory: Reports: No Symptoms. Denies: Shortness of Breath Cardiovascular: Reports: No Symptoms. Denies: Chest Pain, Dyspnea on Exertion Neurological: Reports: Dizziness Psychiatric: Reports: No Symptoms ED EXAM, GENERAL - Physical Exam Exam: See Below Exam Limited By: No Limitations General Appearance: Alert, No Apparent Distress Head: Atraumatic, Normocephalic Neck: Normal Inspection, Supple Respiratory/Chest: No Respiratory Distress, Lungs Clear Cardiovascular: Irregularly Irregular GI/Abdominal: Normal Bowel Sounds, Soft Back Exam: Normal Inspection Neurological: Alert, Oriented, CN II-XII Intact, Normal Cognition Psychiatric: Normal Affect, Normal Mood Skin Exam: Warm, Dry Lymphatic: No Adenopathy Course - Vital Signs Text/Narrative:: Patient's blood work was unremarkable. She was given 10 mg diltiazem IV which did improve her blood pressure but she still remains mildly tachycardic with her heart rate in the 90s and low 100's. She is feeling better with a liter of IV fluid and requests to go home at this time. She will be seeing her alining inspector tomorrow. She is instructed to return to ER if symptoms are worse. She does have a home blood pressure and heart rate monitor. Patient's heart rate is showing occasional PVCs that at times are frequent and at other times are not. She had no time was in an atrial fibrillation rhythm. Again patient is on Coumadin. Last Recorded V/S: Last Vital Signs Temp 97.2 F 12/29/20 22:55 Pulse 96 12/29/20 22:55 Resp 24 H 12/29/20 22:55 BP 188/69 H 12/29/20 22:55 Pulse Ox 96 12/29/20 22:55 - Orders/Labs/Meds Labs: Laboratory Tests 12/30/20 12/30/20 Range/Units 00:36 00:36 WBC 7.36 (3.98-10.04) K/mm3 RBC 4.87 (3.98-5.22) M/mm3 Hgb 14.8 D (11.2-15.7) gm/dl Hct 43.7 (34.1-44.9) % MCV 89.7 D (79.4-94.8) fl MCH 30.4 (25.6-32.2) pg MCHC 33.9 (32.2-35.5) g/dl RDW Std Deviation 43.0 (36.4-46.3) fL Plt Count 181 L (182-369) K/mm3 MPV 10.2 (9.4-12.3) fl Neutrophils % (Manual) 65 H (40-60) % Band Neutrophils % 0 (0-10) % Lymphocytes % (Manual) 22 (20-40) % Atypical Lymphs % 0 % Monocytes % (Manual) 10 (2-10) % Eosinophils % (Manual) 3 (0.7-5.8) % Basophils % (Manual) 0 L (0.1-1.2) Platelet Estimate Adequate RBC Morph Comment Normal Sodium 136 (136-145) mEq/L Potassium 3.3 L (3.5-5.1) mEq/L Chloride 100 (98-107) mEq/L Carbon Dioxide 25 (21-32) mEq/L Anion Gap 14.3 (5-15) BUN 19 H (7-18) mg/dL Creatinine 0.8 (0.55-1.02) mg/dL Est Cr Clr Drug Dosing 52.34 mL/min Estimated GFR (MDRD) > 60 (>60) mL/min BUN/Creatinine Ratio 23.8 H (14-18) Glucose 113 H (70-99) mg/dL Calcium 9.0 (8.5-10.1) mg/dL Total Bilirubin 0.8 (0.2-1.0) mg/dL AST 19 (15-37) U/L ALT 21 (14-59) U/L Alkaline Phosphatase 73 (46-116) U/L Troponin I 0.017 (0.00-0.056) ng/mL Total Protein 7.4 (6.4-8.2) g/dl Albumin 3.4 (3.4-5.0) g/dl Globulin 4.0 gm/dL Albumin/Globulin Ratio 0.9 L (1-2) Meds: Medications Discontinued Medications Generic Name Dose Route Start Last Admin Trade Name Freq PRN Reason Stop Dose Admin Diltiazem HCl 10 mg 12/30/20 00:17 12/30/20 00:39 Diltiazem 50 Mg/10 Ml Sdv IVPUSH 12/30/20 00:18 10 mg ONETIME ONE Administration Sodium Chloride 1,000 mls @ 1,000 mls/hr 12/30/20 00:17 12/30/20 00:39 Normal Saline IV 12/30/20 01:16 1,000 mls/hr ONETIME ONE Administration Departure - Departure Time of Disposition: 02:31 Disposition: Home, Self-Care 01 Condition: Good Clinical Impression: Tachycardia Instructions: Sinus Tachycardia Referrals: Nima Guidry MD [Primary Care Provider] - Additional Instructions: Follow-up with your alining inspector tomorrow to have them adjust your medications. Return to ER if your symptoms are worse or your heart rate or blood pressure are worse. Return sooner if having any chest pain or shortness of breath or you are diaphoretic or having any other symptoms such as exertional chest pain Sepsis Event Note (ED) - Evaluation Sepsis Screening Result: No Definite Risk - Focused Exam Vital Signs: Vital Signs Temp Pulse Resp BP Pulse Ox 12/29/20 22:55 97.2 F 96 24 H 188/69 H 96
== END 2020-12-30 02:37 | disposition home or self-care (01) ==
LOC: JD.ED 22:32
DX: R00.0 Tachycardia, unspecified (principal); I48.91 Unspecified atrial fibrillation; I10 Essential (primary) hypertension; Z88.8 Allergy status to other drugs, medicaments and biological substances; Z79.01 Long term (current) use of anticoagulants; Z79.899 Other long term (current) drug therapy
CPT/HCPCS: 36415; 80053; 84484; 85007; 85027; 96374; 99284; 99284-25; J3490; J7030

== ENCOUNTER 2022-04-16 13:10 | Emergency (ER) | payer MEDICARE, OTHER, MEDICAID | END 2022-04-16 14:39 | disposition home or self-care (01) | LOC: JD.ED 13:10 | DX: I10 Essential (primary) hypertension (principal); Z88.6 Allergy status to analgesic agent; Z79.899 Other long term (current) drug therapy; Z79.01 Long term (current) use of anticoagulants; Z90.49 Acquired absence of other specified parts of digestive tract; Z90.710 Acquired absence of both cervix and uterus | CPT/HCPCS: 99283 ==

== ENCOUNTER 2024-05-14 14:46 | Emergency (ER) | payer MEDICARE, OTHER ==
[2024-05-14 16:11] LABS: BASOPHILS PERCENT AUTO 0.7 % (0.0-1.0); EOSINOPHILS ABSOLUTE AUTO 0.2 K/mm3 (0.0-0.4); EOSINOPHILS PERCENT AUTO 2.7 % (0.0-6.0); HEMATOCRIT 42.4 % (37.0-47.0); HEMOGLOBIN 13.9 gm/dl (12.0-16.0); IMMATURE GRAN ABSOLUTE AUTO 0.02 K/mm3 (0.00-0.05); IMMATURE GRAN PERCENT AUTO 0.3 % (0.0-0.4); LYMPHOCYTES ABSOLUTE AUTO 1.1 K/mm3 (1.0-4.8); LYMPHOCYTES PERCENT AUTO 18.4 % (24.0-44.0); MEAN CORPUSCULAR HGB CONC 32.8 g/dl (32.0-36.0); MEAN CORPUSCULAR VOLUME 91.6 fl (83.0-99.0); MONOCYTES ABSOLUTE AUTO 0.6 K/mm3 (0.0-0.8); MONOCYTES PERCENT AUTO 10.2 % (0.0-8.0); NEUTROPHILS PERCENT AUTO 67.7 % (41.0-71.0); PLATELET COUNT,PLT 150 K/mm3 (150-400); RED BLOOD CELL COUNT 4.63 M/mm3 (4.10-5.30); WHITE BLOOD CELL COUNT,WBC 5.88 K/mm3 (3.9-11.3)
[2024-05-14] MEDS: Labetalol 100 MG/20 ML MDV IVPUSH ONE ×2 (16:38→18:37)
[2024-05-14 16:39] LABS: A/G RATIO 0.9 (1-2); ALBUMIN 3.4 g/dl (3.4-5.0); ANION GAP 14.7 (5-15); BILIRUBIN TOTAL 0.8 mg/dL (0.2-1.0); CALCIUM 8.9 mg/dL (8.5-10.1); EST CRCL DRUG DOSING (CG) 39.03 mL/min; MAGNESIUM 1.7 mg/dL (1.8-2.4); POTASSIUM,K 3.7 mEq/L (3.5-5.1); PROTEIN TOTAL,TP 7.1 g/dl (6.4-8.2)
[2024-05-14] MEDS: Metoclopramide 10 MG/2 ML SDV IVPUSH ONE (19:31)
[2024-05-14] MEDS: amLODIPine 5 MG Tab PO ONE (20:02)
== END 2024-05-14 20:25 | disposition home or self-care (01) ==
LOC: JD.ED 14:46
DX: R11.2 Nausea with vomiting, unspecified (principal); I10 Essential (primary) hypertension; I48.91 Unspecified atrial fibrillation; Z86.16 Personal history of COVID-19; Z79.01 Long term (current) use of anticoagulants; Z79.899 Other long term (current) drug therapy; Z88.5 Allergy status to narcotic agent; Z88.6 Allergy status to analgesic agent
CPT/HCPCS: 36415; 80053; 83735; 84484; 85025; 93005; 96374; 96375; 96376; 99284; A9270; J1920; J2765

== ENCOUNTER 2025-03-19 12:35 | Inpatient (IN) | payer MEDICARE, OTHER ==
[2025-03-19] MEDS ORDERED: Sodium Chloride 0.9% 10 ML Syringe FLUSH PRN (13:04)
[2025-03-19 13:21] LABS: BASOPHILS ABSOLUTE AUTO 0.0 K/mm3 (0.0-0.2); BASOPHILS PERCENT AUTO 0.5 % (0.0-1.0); EOSINOPHILS ABSOLUTE AUTO 0.3 K/mm3 (0.0-0.4); EOSINOPHILS PERCENT AUTO 4.1 % (0.0-6.0); IMMATURE GRAN ABSOLUTE AUTO 0.02 K/mm3 (0.00-0.05); IMMATURE GRAN PERCENT AUTO 0.3 % (0.0-0.4); LYMPHOCYTES ABSOLUTE AUTO 1.4 K/mm3 (1.0-4.8); LYMPHOCYTES PERCENT AUTO 22.2 % (24.0-44.0); MEAN PLATELET VOLUME 9.9 fl (9.4-12.3); MONOCYTES ABSOLUTE AUTO 0.6 K/mm3 (0.0-0.8); MONOCYTES PERCENT AUTO 9.9 % (0.0-8.0); NEUTROPHILS ABSOLUTE AUTO 3.9 K/mm3 (1.8-7.7); NEUTROPHILS PERCENT AUTO 63.0 % (41.0-71.0); NRBC ABSOLUTE 0.00 (0.00-0.02); NRBC PERCENT 0.0 % (0.0-0.2); PLATELET COUNT,PLT 207 K/mm3 (150-400); RED BLOOD CELL COUNT 5.22 M/mm3 (4.10-5.30); WHITE BLOOD CELL COUNT,WBC 6.17 K/mm3 (3.9-11.3)
[2025-03-19 13:31] LABS: A/G RATIO 0.8 (1-2); ALANINE AMINOTRANSFERASE,ALT 22.0 U/L (14-59); ASPARTATE AMNIOTRANSFERASE,AST 15.0 U/L (15-37); BILIRUBIN TOTAL 0.5 mg/dL (0.2-1.0); BLOOD UREA NITROGEN,BUN 24.0 mg/dL (7-18); CARBON DIOXIDE,CO2 28.0 mEq/L (21-32); CHLORIDE,CL 100.0 mEq/L (98-107); CREATININE 1.1 mg/dL (0.55-1.02); EST CRCL DRUG DOSING (CG) 36.28 mL/min; ESTIMATED GFR 50.0 mL/min (>60); GLUCOSE RANDOM 115.0 mg/dL (70-99); POTASSIUM,K 4.0 mEq/L (3.5-5.1); PROTEIN TOTAL,TP 7.8 g/dl (6.4-8.2); SODIUM,NA 136.0 mEq/L (136-145)
[2025-03-19 13:32] LABS: LACTIC ACID 1.1 mmol/L (0.4-2.0)
[2025-03-19] MEDS: hydrALAZINE 20 MG/ML SDV IV ONE (13:39)
[2025-03-19 14:08] LABS: INR 1.96
[2025-03-19] MEDS: Sodium Chloride 0.9% 10 ML Syringe FLUSH ONE (14:10)
[2025-03-19] MEDS: Iopamidol 755 Mg/ML 100 ML Bottle IVPUSH ONE (14:10)
[2025-03-19 14:55] LABS: APPEARANCE,URINE CLEAR (Clear); GLUCOSE,URINE NEGATIVE (Negative); OCCULT BLOOD,URINE NEGATIVE (Negative)
[2025-03-19] MEDS ORDERED: Labetalol 100 MG/20 ML MDV IVPUSH PRN (19:17)
[2025-03-19 19:56] LABS: TSH 1.295 uIU/mL (0.358-3.74)
[2025-03-20 05:44] LABS: BASOPHILS ABSOLUTE AUTO 0.0 K/mm3 (0.0-0.2); BASOPHILS PERCENT AUTO 0.3 % (0.0-1.0); EOSINOPHILS ABSOLUTE AUTO 0.1 K/mm3 (0.0-0.4); EOSINOPHILS PERCENT AUTO 2.0 % (0.0-6.0); IMMATURE GRAN ABSOLUTE AUTO 0.02 K/mm3 (0.00-0.05); IMMATURE GRAN PERCENT AUTO 0.3 % (0.0-0.4); LYMPHOCYTES ABSOLUTE AUTO 0.9 K/mm3 (1.0-4.8); LYMPHOCYTES PERCENT AUTO 13.3 % (24.0-44.0); MEAN PLATELET VOLUME 9.8 fl (9.4-12.3); MONOCYTES ABSOLUTE AUTO 0.7 K/mm3 (0.0-0.8); MONOCYTES PERCENT AUTO 10.2 % (0.0-8.0); NEUTROPHILS ABSOLUTE AUTO 5.2 K/mm3 (1.8-7.7); NEUTROPHILS PERCENT AUTO 73.9 % (41.0-71.0); NRBC ABSOLUTE 0.00 (0.00-0.02); NRBC PERCENT 0.0 % (0.0-0.2); PLATELET COUNT,PLT 201 K/mm3 (150-400); RED BLOOD CELL COUNT 4.93 M/mm3 (4.10-5.30); WHITE BLOOD CELL COUNT,WBC 7.07 K/mm3 (3.9-11.3)
[2025-03-20 06:25] LABS: A/G RATIO 0.7 (1-2); ALANINE AMINOTRANSFERASE,ALT 27.0 U/L (14-59); ASPARTATE AMNIOTRANSFERASE,AST 18.0 U/L (15-37); BILIRUBIN TOTAL 0.7 mg/dL (0.2-1.0); BLOOD UREA NITROGEN,BUN 17.0 mg/dL (7-18); CARBON DIOXIDE,CO2 24.0 mEq/L (21-32); CHLORIDE,CL 102.0 mEq/L (98-107); CHOLESTEROL HDL 79.0 mg/dL (40-59); CHOLESTEROL LDL DIRECT 65.0 mg/dL (<100); CHOLESTEROL TOTAL 159.0 mg/dL (<200); CREATININE 0.7 mg/dL (0.55-1.02); EST CRCL DRUG DOSING (CG) 55.9 mL/min; ESTIMATED GFR 86.0 mL/min (>60); GLUCOSE RANDOM 106.0 mg/dL (70-99); POTASSIUM,K 3.8 mEq/L (3.5-5.1); PROTEIN TOTAL,TP 6.8 g/dl (6.4-8.2); SODIUM,NA 136.0 mEq/L (136-145)
[2025-03-20] MEDS: LORazepam 2 MG/ML SDV IVPUSH PRN (08:47)
[2025-03-20] MEDS: Diltiazem 120 MG Cap.CD PO SCH (13:01)
== END 2025-03-20 16:24 | disposition home or self-care (01) | DRG 69 ==
LOC: JD.ED 12:35 → JD.MS 17:55
PROVIDERS: ADMIT Family Medicine; ATTEND Family Medicine
DX: R42 Dizziness and giddiness (principal); G45.9 Transient cerebral ischemic attack, unspecified; I16.0 Hypertensive urgency; I10 Essential (primary) hypertension; I48.91 Unspecified atrial fibrillation; Z66 Do not resuscitate; H54.7 Unspecified visual loss; H40.9 Unspecified glaucoma; F41.9 Anxiety disorder, unspecified; J30.9 Allergic rhinitis, unspecified; M19.90 Unspecified osteoarthritis, unspecified site; F32.A Depression, unspecified; Z96.649 Presence of unspecified artificial hip joint; Z86.16 Personal history of COVID-19; Z85.3 Personal history of malignant neoplasm of breast; Z98.49 Cataract extraction status, unspecified eye; Z88.8 Allergy status to other drugs, medicaments and biological substances; Z79.899 Other long term (current) drug therapy; Z79.01 Long term (current) use of anticoagulants; Z90.49 Acquired absence of other specified parts of digestive tract; Z98.890 Other specified postprocedural states; Z90.710 Acquired absence of both cervix and uterus; Z90.10 Acquired absence of unspecified breast and nipple
CPT/HCPCS: 36415; 70450; 70496; 70498; 80053; 81003; 82607; 83036; 83605; 83735; 84443; 85025; 85610; 93005; 96374; 99285; J0360; Q9967; 70551; 70551-26; 80061; 82947; 93010; 97112-GP; 97116-GP; 97161-GP; 97166-GO; 97535-GO; 99223; 99239; 99284; A9270-GY; J2060

== ENCOUNTER 2025-03-23 18:58 | Emergency (ER) | payer MEDICARE, OTHER ==
[2025-03-23 19:47] LABS: BASOPHILS ABSOLUTE AUTO 0.0 K/mm3 (0.0-0.2); BASOPHILS PERCENT AUTO 0.3 % (0.0-1.0); EOSINOPHILS ABSOLUTE AUTO 0.3 K/mm3 (0.0-0.4); EOSINOPHILS PERCENT AUTO 4.3 % (0.0-6.0); IMMATURE GRAN ABSOLUTE AUTO 0.02 K/mm3 (0.00-0.05); IMMATURE GRAN PERCENT AUTO 0.3 % (0.0-0.4); LYMPHOCYTES ABSOLUTE AUTO 1.5 K/mm3 (1.0-4.8); LYMPHOCYTES PERCENT AUTO 21.4 % (24.0-44.0); MEAN PLATELET VOLUME 10.1 fl (9.4-12.3); MONOCYTES ABSOLUTE AUTO 0.8 K/mm3 (0.0-0.8); MONOCYTES PERCENT AUTO 11.4 % (0.0-8.0); NEUTROPHILS ABSOLUTE AUTO 4.3 K/mm3 (1.8-7.7); NEUTROPHILS PERCENT AUTO 62.3 % (41.0-71.0); NRBC ABSOLUTE 0.00 (0.00-0.02); NRBC PERCENT 0.0 % (0.0-0.2); PLATELET COUNT,PLT 204 K/mm3 (150-400); RED BLOOD CELL COUNT 4.68 M/mm3 (4.10-5.30); WHITE BLOOD CELL COUNT,WBC 6.92 K/mm3 (3.9-11.3)
[2025-03-23 20:00] LABS: A/G RATIO 0.8 (1-2); ALANINE AMINOTRANSFERASE,ALT 25.0 U/L (14-59); ASPARTATE AMNIOTRANSFERASE,AST 22.0 U/L (15-37); BILIRUBIN TOTAL 0.6 mg/dL (0.2-1.0); BLOOD UREA NITROGEN,BUN 27.0 mg/dL (7-18); CHLORIDE,CL 102.0 mEq/L (98-107); CREATININE 0.9 mg/dL (0.55-1.02); EST CRCL DRUG DOSING (CG) 42.62 mL/min; ESTIMATED GFR 63.0 mL/min (>60); GLUCOSE RANDOM 107.0 mg/dL (70-99); PROTEIN TOTAL,TP 7.1 g/dl (6.4-8.2); SODIUM,NA 136.0 mEq/L (136-145)
[2025-03-23 20:05] LABS: CARBON DIOXIDE,CO2 25.0 mEq/L (21-32)
[2025-03-23 20:10] LABS: TROPONIN I HIGH SENSITIVITY 90.0 pg/mL (<=51)
[2025-03-23 20:11] LABS: POTASSIUM,K 4.6 mEq/L (3.5-5.1)
[2025-03-23 20:17] LABS: INR 2.09
== END 2025-03-23 21:40 ==
LOC: JD.ED 18:58
DX: I11.9 Hypertensive heart disease without heart failure (principal); I48.91 Unspecified atrial fibrillation; E78.00 Pure hypercholesterolemia, unspecified; Z86.16 Personal history of COVID-19; Z90.49 Acquired absence of other specified parts of digestive tract; Z88.5 Allergy status to narcotic agent; Z79.01 Long term (current) use of anticoagulants; Z79.899 Other long term (current) drug therapy; Z88.6 Allergy status to analgesic agent
CPT/HCPCS: 36415; 71045; 80053; 83880; 84484; 85025; 85610; 93005; 99285; A9270; 93010; 99284